=== PATIENT | male | born 1975 | race Caucasian/White ===

== ENCOUNTER 2019-09-14 06:07 | Emergency (ER) | payer OTHER, SELFPAY ==
[2019-09-14 06:27] VITALS: BP 122/77; PULSE 102; RESP 20; TEMP 36.6; O2SAT 100
--- NOTE | 2019-09-14 06:31 | ED.BACK ---
HPI - Back Pain/Injury General Chief Complaint: Back Pain/Injury Stated Complaint: back pain Time Seen by Provider: 09/14/19 06:37 Source: patient Mode of arrival: ambulatory Limitations: no limitations History of Present Illness HPI Narrative: 44-year-old man comes in today complaining of low back pain that radiates to his testicles that has been present for the last 2-3 days. Patient states that he went to get up in a chair and had sudden back pain. He has had low back pain that radiates to his testicle many times and has been having low back pain issues for last 12 years. He was evaluated by a coverage specialist 2 years ago and has had her spinal injections for his symptoms since. he denies any weakness or numbness. MD elicited complaint: back pain Pertinent past history: prior back pain Onset (ago): day(s) (2) Timing: constant Severity: severe Similar Symptoms Previously: Yes Quality: sharp Location: lumbar spine Radiation: other ( Testicles) Exacerbating factors: movement Relieving factors: none Treatments prior to arrival: NSAIDS ( yesterday) and other medications ( Flexeril) Work related injury: No Related Data Home Medications Medication Instructions Recorded Confirmed carbamazepine 500 mg PO Q12H 08/16/19 09/14/19 citalopram [Celexa] 40 mg PO DAILY 08/16/19 09/14/19 cyclobenzaprine 5 mg PO TID PRN 09/14/19 09/14/19 omega 0-cpy-tsg-fish oil [Fish Oil] 1 cap PO DAILY 09/14/19 09/14/19 omeprazole 20 mg PO BID 09/14/19 09/14/19 Allergies Allergy/AdvReac Type Severity Reaction Status Date / Time No Known Allergies Allergy Verified 08/16/19 17:49 Review of Systems Constitutional: Constitutional: Denies chills, Denies fever(s) and Denies weakness Eyes: Eyes: Denies change in vision and Denies photophobia ENT: Denies dysphagia, Denies nasal congestion and Denies sore throat Cardiovascular: Cardiovascular: Denies chest pain and Denies radiating jaw, neck or arm pain Respiratory: Respiratory: Denies cough, Denies dyspnea and Denies wheezing Gastrointestinal: Gastrointestinal: Denies abdominal pain, Denies nausea and Denies vomiting Genitourinary: Genitourinary: Denies hematuria and Denies dysuria Musculoskeletal: Musculoskeletal: Reports back pain, Denies arthralgias, Denies joint swelling and Reports muscle cramps Integumentary/Breasts: Skin/Breast: Denies pruritus, Denies erythema and Denies rash Neurologic: Denies vertigo, Denies syncope and Denies focal weakness Psychiatric: Psychiatric: Denies anxiety and Denies depression Endocrine: Endocrine: Denies polydipsia and Denies polyuria Hematologic/Lymphatic: Hematologic/Lymphatic: Denies easy bleeding and Denies easy bruising Allergic/Immunologic: Allergic/Immunologic: Denies lip swelling and Denies wheezing [facility] Past Medical History Medical History (Updated 09/14/19 @ 06:51 by Priyank Smith MD) Bipolar 1 disorder Hypertension Family History Family History (Updated 08/16/19 @ 18:23 by Priyank Meza MD) Mother Degenerative arthritis Social History Social History (Updated 08/16/19 @ 18:24 by Priyank Meza MD) Years smoked: 20 Smoking status: Current some day smoker Exam Const: General: healthy appearing and alert Orientation/consciousness: patient oriented x3 Limitations: no limitations Other: moderate to severe distress HENMT: Mouth: Yes moist mucous membranes and Yes Abnormal oral and palatal mucosa present Eyes: Conjunctivae: conjunctivae normal Pupils: Equal, round and reactive pupils present EOM: EOMs intact bilaterally Chest: Chest palpation & inspection: no tenderness and No Pacemaker present Resp: Effort & Inspection: normal respiratory effort and not labored Auscultation: clear to auscultation bilaterally, no rales, no rhonchi and no wheezes Cardio: Rate: regular rate Rhythm: regular rhythm Heart sounds: no murmurs Skin: General skin exam: normal color, no jaundice and no pallor Rashes: n
[2019-09-14] MEDS: KETOROLAC (*BKC) 60 MG/2 ML VIAL IM (06:50)
[2019-09-14 06:59] LABS: Add Urine Microscopic? YES; Appearance Urine Sl Cloudy (Clear); Bilirubin Urine 2+ (Negative); Blood Urine Negative (Negative); Color Urine Yellow (Yellow); Glucose Urine UA Negative (Negative); Ketones Urine Negative (Negative); Leukocyte Esterase Ur Negative (Negative); Nitrate Urine Negative (Negative); Protein Urine 1+ (Negative); Specific Grav Ur >= 1.030 (1.010-1.020); Urobilinogen Urine 0.2 mg/dL (0.2-1.0); pH Urine 5.5 (5.0-8.0)
[2019-09-14 07:04] LABS: RBC Urine 0-2 /hpf (0-2); WBC Urine 0-3 /hpf (0-3)
[2019-09-14 07:05] LABS: Bacteria Urine Trace /hpf
[2019-09-14 07:06] LABS: Mucus Urine Few /lpf
[2019-09-14 07:12] VITALS: BP 128/76; PULSE 89; RESP 20; O2SAT 98
== END 2019-09-14 07:18 | disposition home or self-care (01) ==
PROVIDERS: Emergency Provider Emergency Medicine
DX: M54.5 Low back pain (principal)
CPT/HCPCS: 81001; 96372; 99283; J1885

== ENCOUNTER 2020-11-01 12:26 | Emergency (ER) | payer OTHER, SELFPAY ==
--- NOTE | ~2020-11-01 | XR_ITS ---
EXAMINATION: XR lumbar spine 2-3V DATE: 11/01/2020 13:38 INDICATION: Low back pain with sciatica radiating down the left leg. TECHNIQUE: Anteroposterior and lateral views of the lumbar spine, and cone-down lateral view of the l umbosacral junction were obtained. COMPARISON: None. FINDINGS: Alignment is normal. Vertebral body heights are normal. No fracture. Mild disc height loss at L3-L4 a nd L4-L5. Sacrum and bilateral sacroiliac joints are normal. IMPRESSION: 1. Mild lower lumbar spondylosis. Reviewed, dictated and finalized at location A.
--- NOTE | ~2020-11-01 | XR_ITS ---
EXAMINATION: XR chest 2V DATE: 11/01/2020 13:38 INDICATION: Cough and congestion TECHNIQUE: PA and lateral views of the chest were obtained. COMPARISON: None FINDINGS: The lungs are clear with no focal airspace opacities, pulmonary edema, pleural effusion or pneumothor ax. The cardiomediastinal silhouette is normal. Minimal thoracic spondylosis. IMPRESSION: 1. No acute cardiopulmonary disease. Reviewed, dictated and finalized at location A.
[2020-11-01 13:03] VITALS: BP 124/86; PULSE 60; RESP 20; TEMP 36.7; O2SAT 100
--- NOTE | 2020-11-01 13:22 | ED.URI ---
HPI - URI/Sore Throat General Chief Complaint: Upper Respiratory Infection Stated Complaint: SICK Source: patient and family Mode of arrival: ambulatory History of Present Illness HPI Narrative: Patient here with some is a 45-year-old with cough with some green sputum expectorant with mild shortness of breath, with no chest pain no nasal congestion or discharge no sick contacts with no fever chills no nausea vomiting no chest pain or pressure. Patient also has a chronic low back pain and injured his back couple of days ago and is radiating down his left lower extremity pain leveled out of 1010 has tried iyvs-[id number] medication with minimal relief. MD elicited complaint: cough Onset (ago): day(s) Consistency: intermittent Severity: mild Exacerbating factors: nothing Related Data Home Medications Medication Instructions Recorded Confirmed carbamazepine 250 mg PO Q12H 08/16/19 11/01/20 omega 5-fro-mmv-fish oil [Fish Oil] 1 cap PO DAILY 09/14/19 11/01/20 omeprazole 20 mg PO BID 09/14/19 11/01/20 buspirone 5 mg PO DAILY 11/01/20 11/01/20 Allergies Allergy/AdvReac Type Severity Reaction Status Date / Time No Known Allergies Allergy Verified 11/01/20 13:45 Review of Systems Review of Systems: All systems reviewed & are unremarkable except as noted in HPI and below PMFSH Past Medical History Medical History Bipolar 1 disorder Hypertension Family History Family History Mother Degenerative arthritis Social History Social History Years smoked: 20 Smoking status: Current some day smoker Gender identity (if verbalized by the patient): Male Exam Const: General: no acute distress and alert Orientation/consciousness: patient oriented x3 HENMT: Head: normal to inspection Eyes: Conjunctivae: conjunctivae normal Pupils: Equal, round and reactive pupils present Chest: Chest palpation & inspection: normal inspection of the chest Resp: Effort & Inspection: normal respiratory effort Cardio: Rate: regular rate Rhythm: regular rhythm GI: GI Palp: Yes Soft to palpation Percussion: Yes normal to percussion Skin: General skin exam: normal color Rashes: no rashes Neuro: General: patient oriented x3 Extrem: Other: Positive straight leg raise test on the left with tenderness in his L4-L5 left paraspinal area. Psych: Appearance: grossly normal and well kempt Mental Status: mental status grossly normal Affect: normal affect Course Course Emergency Course: Patient had x-rays and x-ray of his lumbar spine and x-ray of his chest reviewed was given Toradol and muscle relaxer IM and which has improved his discomfort. Vital Signs Vital signs: Vital Signs Temperature 36.7 C 11/01/20 13:03 Pulse Rate 60 11/01/20 13:03 Respiratory Rate 20 11/01/20 13:03 Blood Pressure 124/86 11/01/20 13:03 Pulse Oximetry 100 11/01/20 13:03 Temperature 36.7 C 11/01/20 13:03 Pulse Rate 60 11/01/20 13:03 Respiratory Rate 20 11/01/20 13:03 Blood Pressure 124/86 11/01/20 13:03 Pulse Oximetry 100 11/01/20 13:03 Critical Care Time Critical Care Time Critical Care Time: No Discharge Plan Discharge Clinical Impression: Bronchitis Back strain Qualifiers: Encounter type: initial encounter Qualified Code(s): S39.012A - Strain of muscle, fascia and tendon of lower back, initial encounter Patient Disposition: Home, Self-Care Condition: Stable Instructions: Antibiotic Form, Acute Bronchitis (ED), Low Back Strain (ED) Additional Instructions: take medicine as prescribed and follow-up primary care physician within 1 to 2 weeks further evaluation and treatment. Prescriptions: New azithromycin [Zithromax Z-Artem] 250 mg tablet See Rx Instructions .ROUTE .COMPLEX Qty: 6 RF: 0 tramadol [Ultram] 50 mg tab
[2020-11-01] MEDS: ORPHENADRINE CITRATE 100 MG TABLET.ER PO (13:41)
[2020-11-01] MEDS: KETOROLAC (*BKC) 60 MG/2 ML VIAL IM (13:41)
[2020-11-01 14:25] VITALS: BP 142/97; PULSE 66; RESP 20; TEMP 36.8; O2SAT 98
== END 2020-11-01 14:27 | disposition home or self-care (01) ==
PROVIDERS: Emergency Provider Emergency Medicine; PCP Family Medicine
DX: J40 Bronchitis, not specified as acute or chronic (principal); S39.012A Strain of muscle, fascia and tendon of lower back, initial encounter
CPT/HCPCS: 71046; 72100; 96372; 99283; A9270; J1885

== ENCOUNTER 2021-11-12 18:02 | Emergency (ER) | payer OTHER, SELFPAY ==
--- NOTE | ~2021-11-12 | XR_ITS ---
EXAMINATION: XR chest 2V Exam Date/Time: 11/12/2021 18:35 CDT CLINICAL HISTORY: productive cough with SOB x1wk Comparison: 11/01/2020. RESULT: Lines, tubes, and devices: None. Lungs and pleura: Clear. Cardiomediastinal silhouette: Stable cardiomediastinal silhouette. Other: No acute osseous or upper abdominal finding. IMPRESSION: No acute cardiopulmonary process Reviewed, dictated and finalized at location K.
--- NOTE | 2021-11-12 18:16 | ED.URI ---
HPI - URI/Sore Throat General Chief Complaint: Upper Respiratory Infection Stated Complaint: fever, headache, congestion, body pain Time Seen by Provider: 11/12/21 18:16 Source: patient History of Present Illness HPI Narrative: 46-year-old male with a history of smoking, hypertension, bipolar disorder had COVID pneumonia in August of 2021. He presents to the ER with a 10 day history of -- cough with mucopurulent sputum -- nasal congestion mucopurulent discharge with specks of blood. significant postnasal drip -- hilar fullness involving both maxillary sinuses and frontal sinuses no fever or chills. No shortness of breath. MD elicited complaint: cough, nasal congestion and sinus pain Description of mucous: yellow and bloody Able to tolerate fluids by mouth: Yes Exacerbating factors: nothing Relieving factors: nothing Associated symptoms: denies other symptoms, nasal congestion and cough Related Data Home Medications Medication Instructions Recorded Confirmed carbamazepine 250 mg PO Q12H 08/16/19 11/12/21 omeprazole 20 mg PO BID 09/14/19 11/12/21 trazodone 100 mg PO HS 11/12/21 11/12/21 Allergies Allergy/AdvReac Type Severity Reaction Status Date / Time No Known Allergies Allergy Verified 11/12/21 18:24 Review of Systems Review of Systems: All systems reviewed & are unremarkable except as noted in HPI and below Constitutional: Constitutional: Reports as per HPI and Reports no additional constitutional complaints Eyes: Eyes: Reports as per HPI and Reports no additional eye complaints ENT: Reports system reviewed and no additional complaints, except as documented and Reports nasal congestion Comments: mucopurulent nasal discharge with postnasal drip Cardiovascular: Cardiovascular: Reports as per HPI and Reports no additional cardiovascular complaints Respiratory: Respiratory: Reports as per HPI, Reports no additional respiratory complaints and Reports cough Gastrointestinal: Gastrointestinal: Reports as per HPI and Reports no additional gastrointestinal complaints Genitourinary: Genitourinary: Reports no additional male genitourinary complaints and Reports as per HPI Musculoskeletal: Musculoskeletal: Reports no additional musculoskeletal complaints and Reports as per HPI Integumentary/Breasts: Skin/Breast: Reports system reviewed and no additional complaints, except as docu and Reports as per HPI Neurologic: Reports system reviewed and no additional complaints, except as documented and Reports as per HPI Psychiatric: Psychiatric: Reports no additional psychiatric complaints and Reports as per HPI Endocrine: Endocrine: Reports no additional endocrine complaints and Reports as per HPI Hematologic/Lymphatic: Hematologic/Lymphatic: Reports no additional hematologic/lymphatic complaints and Reports as per HPI Allergic/Immunologic: Allergic/Immunologic: Reports no additional allergic/immunologic complaints and Reports as per HPI [facility] Past Medical History Medical History (Updated 11/12/21 @ 19:31 by Cesario Bahena MD) Bipolar 1 disorder Hypertension Infection due to severe acute respiratory syndrome coronavirus 2 (SARS-CoV-2) Family History Family History Mother Degenerative arthritis Social History Social History Years smoked: 20 Smoking status: Current some day smoker Gender identity (if verbalized by the patient): Male Exam Const: General: no acute distress and alert Orientation/consciousness: patient oriented x3 HENMT: Head: normal to inspection General nose exam: Normal external nose present and Normal nares present Other: bilateral maxillary sinus tenderness. Tender upper cervical lymph nodes. Eyes: Conjunctivae: conjunctivae normal Pupils: Equal, round and reactive pupils present Neck: Neck: normal visual inspection, no lymphadenopathy and no meningeal signs C
[2021-11-12 18:19] VITALS: BP 138/93; PULSE 77; RESP 20; TEMP 36.7; O2SAT 97
[2021-11-12 19:16] LABS: SARS-CoV-2 RNA PCR Negative (Negative)
[2021-11-12 19:18] LABS: Influenza A QL RT-PCR Negative (Negative); Influenza B QL RT-PCR Negative (Negative)
[2021-11-12] MEDS: AZITHROMYCIN 250 MG TABLET 500 MG PO (19:38)
[2021-11-12] MEDS: LORATADINE 10 MG TABLET PO (19:38)
[2021-11-12 19:44] VITALS: BP 130/88; PULSE 88; RESP 18; TEMP 36.7; O2SAT 98
== END 2021-11-12 19:45 | disposition home or self-care (01) ==
PROVIDERS: Emergency Provider Internal Medicine Critical Care Medicine; PCP Family Medicine
DX: J01.40 Acute pansinusitis, unspecified (principal); J06.9 Acute upper respiratory infection, unspecified; Z20.822 Contact with and (suspected) exposure to COVID-19
CPT/HCPCS: 71046; 87502; 99283; A9270; C9803; U0003; U0005

== ENCOUNTER 2022-02-28 16:08 | Emergency (ER) | payer OTHER, SELFPAY ==
[2022-02-28 16:29] VITALS: BP 130/81; PULSE 63; RESP 16; TEMP 36.4; O2SAT 100
[2022-02-28 17:18] LABS: Influenza A QL RT-PCR Negative (Negative); Influenza B QL RT-PCR Negative (Negative); SARS-CoV-2 RNA PCR Positive (Negative)
--- NOTE | 2022-02-28 17:23 | ED.FEVER ---
HPI - Fever General Chief Complaint: Fever Stated Complaint: not feeling good exposed to covid Time Seen by Provider: 02/28/22 16:12 History of Present Illness HPI Narrative: mild bodyaches and chills. Onset (ago): day(s) (2) Context: sick contacts Exacerbating factors: nothing Relieving factors: cold medicine Associated symptoms: chills, myalgias and headache Treatments prior to arrival fever: none Related Data Home Medications Medication Instructions Recorded Confirmed No Home Medications 02/28/22 02/28/22 Allergies Allergy/AdvReac Type Severity Reaction Status Date / Time No Known Allergies Allergy Verified 02/28/22 16:35 Review of Systems Review of Systems: All systems reviewed & are unremarkable except as noted in HPI and below Constitutional: Constitutional: Reports no additional constitutional complaints and Reports chills Eyes: Eyes: Reports no additional eye complaints ENT: Reports system reviewed and no additional complaints, except as documented Cardiovascular: Cardiovascular: Reports no additional cardiovascular complaints Respiratory: Respiratory: Reports no additional respiratory complaints Gastrointestinal: Gastrointestinal: Reports no additional gastrointestinal complaints Musculoskeletal: Musculoskeletal: Reports no additional musculoskeletal complaints and Reports myalgias Integumentary/Breasts: Skin/Breast: Reports system reviewed and no additional complaints, except as docu Neurologic: Reports system reviewed and no additional complaints, except as documented Psychiatric: Psychiatric: Reports no additional psychiatric complaints Endocrine: Endocrine: Reports no additional endocrine complaints Hematologic/Lymphatic: Hematologic/Lymphatic: Reports no additional hematologic/lymphatic complaints Allergic/Immunologic: Allergic/Immunologic: Reports no additional allergic/immunologic complaints PMFSH Past Medical History Medical History Bipolar 1 disorder Hypertension Infection due to severe acute respiratory syndrome coronavirus 2 (SARS-CoV-2) Family History Family History Mother Degenerative arthritis Social History Social History Years smoked: 20 Smoking status: Current some day smoker Gender identity (if verbalized by the patient): Male Exam Const: General: healthy appearing and no acute distress Nutritional Appearance: well nourished Orientation/consciousness: patient oriented x3 Limitations: no limitations HENMT: Head: normal to inspection Ears: external ears normal, TM's normal bilaterally and EAC's normal General nose exam: Normal external nose present and Normal nares present Face and sinus: normal facial exam and sinuses nontender Mouth: Yes Normal oral and palatal mucosa present and Yes moist mucous membranes Teeth and gingiva: dentition normal Throat: posterior oropharynx normal Eyes: Conjunctivae: conjunctivae normal Pupils: Equal, round and reactive pupils present EOM: EOMs intact bilaterally Neck: Neck: normal visual inspection, no lymphadenopathy and no meningeal signs Chest: Chest palpation & inspection: normal inspection of the chest Resp: Effort & Inspection: normal respiratory effort Auscultation: clear to auscultation bilaterally Cardio: Rate: regular rate Rhythm: regular rhythm GI: GI Palp: Yes Soft to palpation and No Tenderness to palpation present (GI) Auscultation: normal bowel sounds : General: Yes bladder normal to palpation and Yes no CVA tenderness Back/Spine/Pelvis: Back: no CVA tenderness Skin: General skin exam: normal color Rashes: no rashes Wounds: no wounds Neuro: General: patient oriented x3, moves all extremities, no meningeal signs, no focal motor deficits and CN's II-XI intact bilaterally Cranial nerves: Yes Equal, round and reactive
[2022-02-28 17:31] VITALS: BP 126/80; PULSE 72; RESP 16; TEMP 36.6; O2SAT 98
== END 2022-02-28 17:35 | disposition home or self-care (01) ==
PROVIDERS: Emergency Provider Emergency Medicine; PCP Family Medicine
DX: U07.1 COVID-19 (principal)
CPT/HCPCS: 87502; 99283; C9803; U0003; U0005

== ENCOUNTER 2022-03-21 09:43 | Emergency (ER) | payer OTHER, SELFPAY ==
[2022-03-21 09:45] VITALS: BP 139/87; PULSE 58; RESP 18; TEMP 36; O2SAT 98
--- NOTE | 2022-03-21 09:58 | ED.EYEPROB ---
HPI - Eye Problem General Chief complaint: Eye Problems Stated complaint: Right eye pain Time Seen by Provider: 03/21/22 09:58 Source: patient Mode of arrival: ambulatory History of Present Illness HPI Narrative: 46-year-old male with a history of hypertension, bipolar presents to the ER with a 1 day history of -- foreign body sensation in the right eye. He was trimming trees yesterday when he felt something fall into his right eye. -- Eye pain with tearing from right MD chief complaint: eye pain, eye redness and vision change Onset (ago): day(s) ( since yesterday) Onset description: gradual Duration: constant Location: right eye Eye Symptoms: burning, redness, pain and foreign body sensation Place: home Mechanism: other ( started after he was trimming trees) Severity scale (1-10): 9 If Pain, Quality: aching Associated symptoms: none Treatments Prior to Arrival: none Related Data Home Medications Medication Instructions Recorded Confirmed carbamazepine 200 mg tablet 200 mg PO DAILY 03/21/22 03/21/22 Allergies Allergy/AdvReac Type Severity Reaction Status Date / Time No Known Allergies Allergy Verified 02/28/22 16:35 Review of Systems Review of Systems: All systems reviewed & are unremarkable except as noted in HPI and below Constitutional: Constitutional: Reports as per HPI and Reports no additional constitutional complaints Eyes: Eyes: Reports no additional eye complaints and Reports photophobia ENT: Reports system reviewed and no additional complaints, except as documented and Reports as per HPI Cardiovascular: Cardiovascular: Reports as per HPI and Reports no additional cardiovascular complaints Respiratory: Respiratory: Reports as per HPI and Reports no additional respiratory complaints Gastrointestinal: Gastrointestinal: Reports as per HPI and Reports no additional gastrointestinal complaints Genitourinary: Genitourinary: Reports no additional male genitourinary complaints and Reports as per HPI Musculoskeletal: Musculoskeletal: Reports no additional musculoskeletal complaints and Reports as per HPI Integumentary/Breasts: Skin/Breast: Reports system reviewed and no additional complaints, except as docu and Reports as per HPI Neurologic: Reports system reviewed and no additional complaints, except as documented and Reports as per HPI Psychiatric: Psychiatric: Reports no additional psychiatric complaints and Reports as per HPI Endocrine: Endocrine: Reports no additional endocrine complaints and Reports as per HPI Hematologic/Lymphatic: Hematologic/Lymphatic: Reports no additional hematologic/lymphatic complaints and Reports as per HPI Allergic/Immunologic: Allergic/Immunologic: Reports no additional allergic/immunologic complaints and Reports as per [facility] Past Medical History Medical History Bipolar 1 disorder Hypertension Infection due to severe acute respiratory syndrome coronavirus 2 (SARS-CoV-2) Family History Family History Mother Degenerative arthritis Social History Social History Years smoked: 20 Smoking status: Current some day smoker Gender identity (if verbalized by the patient): Male Exam Const: General: healthy appearing and no acute distress Nutritional Appearance: well nourished Orientation/consciousness: patient oriented x3 Limitations: no limitations HENMT: Head: normal to inspection Ears: external ears normal General nose exam: Normal external nose present Face and sinus: normal facial exam Mouth: Yes Normal oral and palatal mucosa present Throat: posterior oropharynx normal Eyes: Conjunctivae: conjunctivae normal ( right bulbar conjunctiva is erythematous) Pupils: Equal, round and reactive pupils present EOM: EOMs intact bilaterally Direct Ophthalmoscopy: photophobia Other: corneal
[2022-03-21] MEDS: FLUORESCEIN SOD 1 MG/STRIP RIGHT EYE (10:06)
[2022-03-21] MEDS: DACRIOSE EYE IRRIGATION 118 ML BOTTLE 10 ML RIGHT EYE (10:07)
[2022-03-21] MEDS: TETRACAINE HCL 0.5% OPHTH SOLN 4 ML BTL 1 DROP RIGHT EYE (10:07)
[2022-03-21 10:22] VITALS: BP 135/87; PULSE 64; RESP 20; TEMP 36; O2SAT 97
[2022-03-21] MEDS: ERYTHROMYCIN OPHTH OINTMENT 3.5 GM TUBE 1 APPLIC (10:26)
== END 2022-03-21 10:27 | disposition home or self-care (01) ==
PROVIDERS: Emergency Provider Internal Medicine Critical Care Medicine
DX: S05.01XA Injury of conjunctiva and corneal abrasion without foreign body, right eye, initial encounter (principal)
CPT/HCPCS: 99283; A9270

== ENCOUNTER 2022-09-30 14:11 | Emergency (ER) | payer OTHER, SELFPAY ==
--- NOTE | 2022-09-30 14:17 | ED.URI ---
HPI - URI/Sore Throat General Stated Complaint: sinus pressure and sore throat Time Seen by Provider: 09/30/22 14:14 Source: patient and RN notes reviewed Mode of arrival: ambulatory Limitations: no limitations History of Present Illness MD elicited complaint: fever, sore throat, rhinorrhea and nasal congestion Pertinent past history: sinusitis Onset (ago): week(s) (1) Consistency: intermittent Severity: moderate Description of mucous: yellow Able to tolerate fluids by mouth: Yes Exacerbating factors: nothing Context: sick contacts ( Family member) Associated symptoms: fever, chills, headache, rhinorrhea and nasal congestion Treatments prior to arrival: cold medicine (clairinex) Related Data Home Medications Medication Instructions Recorded Confirmed carbamazepine 200 mg tablet 200 mg PO DAILY 03/21/22 03/21/22 Allergies Allergy/AdvReac Type Severity Reaction Status Date / Time No Known Allergies Allergy Verified 09/30/22 14:24 Review of Systems Review of Systems: All systems reviewed & are unremarkable except as noted in HPI and below PMFSH Past Medical History Medical History (Updated 09/30/22 @ 14:35 by Michael Hernandez MD) Bipolar 1 disorder Hypertension Infection due to severe acute respiratory syndrome coronavirus 2 (SARS-CoV-2) Surgical History Surgical History (Updated 09/30/22 @ 14:35 by Michael Hernandez MD) No pertinent past surgical history Family History Family History Mother Degenerative arthritis Social History Social History Years smoked: 20 Smoking status: Current some day smoker Gender identity (if verbalized by the patient): Male Exam Const: General: healthy appearing and no acute distress Nutritional Appearance: well nourished Orientation/consciousness: patient oriented x3 Limitations: no limitations HENMT: Head: normal to inspection Ears: external ears normal Face/Nose/Sinus: Normal external nose present Face and sinus: normal facial exam Mouth: Yes moist mucous membranes Throat: posterior oropharynx normal and uvula midline Eyes: Conjunctivae: conjunctivae normal Pupils: Equal, round and reactive pupils present EOM: EOMs intact bilaterally Neck: Neck: normal visual inspection and no lymphadenopathy Resp: Effort & Inspection: normal respiratory effort Auscultation: clear to auscultation bilaterally, no rales and no rhonchi Cardio: Rate: regular rate Rhythm: regular rhythm GI: GI Palp: Yes Soft to palpation and No Tenderness to palpation present (GI) Auscultation: normal bowel sounds Back/Spine/Pelvis: Cervical Spine: cervical ROM normal Thoracic/Lumbar Spine: thoraco-lumbar ROM normal Skin: General skin exam: normal color Rashes: no rashes Neuro: General: patient oriented x3, moves all extremities, no focal motor deficits and CN's II-XI intact bilaterally Speech: normal speech Gait exam (Neuro): Normal gait present Extrem: General: normal to inspection and no clubbing, cyanosis or edema Psych: Mental Status: mental status grossly normal Affect: normal affect Attitude: cooperative MDM - URI/Sore Throat Differential Diagnosis Differential diagnosis: Likely upper respiratory infection, sinusitis, viral infection, bronchitis and pharyngitis Discharge Plan Discharge Clinical Impression: Sinusitis Qualifiers: Sinusitis location: unspecified location Chronicity: acute Recurrence: non-recurrent Qualified Code(s): J01.90 - Acute sinusitis, unspecified Patient Disposition: Home, Self-Care Condition: Stable Instructions: Sinusitis (ED) Additional Instructions: can try Afrin 1 puff each nostril twice daily for 3 days. Instead of Afrin can also use Flonase 1 puff each nostril twice daily. Can try [id number] decongestant if Claritin not working. Follow-up with your primary care physician as needed if antibiotic still necessar
[2022-09-30 14:21] VITALS: BP 143/82; PULSE 86; RESP 16; TEMP 37.1; O2SAT 99
[2022-09-30 14:25] VITALS: BP 143/82; PULSE 80; RESP 18; TEMP 37.1; O2SAT 99
[2022-09-30 14:43] VITALS: BP 143/82; PULSE 80; RESP 18; TEMP 37.1; O2SAT 99
== END 2022-09-30 14:45 | disposition home or self-care (01) ==
LOC: CHSED 14:33
PROVIDERS: Emergency Provider Emergency Medicine
DX: J01.90 Acute sinusitis, unspecified (principal); I10 Essential (primary) hypertension; F17.210 Nicotine dependence, cigarettes, uncomplicated
CPT/HCPCS: 99281

== ENCOUNTER 2022-11-21 10:57 | Outpatient (CLI) | payer OTHER, SELFPAY ==
--- NOTE | ~2022-11-21 | XR_ITS ---
Lumbosacral Spine: AP and lateral views Clinical History: Pain Findings: The normal lordotic curve is maintained. The vertebral bodies and posterior elements are i ntact. Minimal degenerative disc changes are noted. The sacroiliac joints are normally outlined. Impression: Minimal degenerative disc narrowing in the lower lumbar spine. Reviewed, dictated and finalized at location . Impression: Minimal degenerative disc narrowing in the lower lumbar spine.
== END 2022-11-21 10:58 | disposition home or self-care (01) ==
LOC: CHSIMG 10:59
PROVIDERS: PCP Family Medicine; Visit Provider Family Medicine
DX: M54.10 Radiculopathy, site unspecified (principal); M48.061 Spinal stenosis, lumbar region without neurogenic claudication
CPT/HCPCS: 72100

== ENCOUNTER 2023-01-23 00:28 | Day surgery (SDC) | payer OTHER, SELFPAY ==
[2023-01-15 10:07] VITALS: BMI 24.4
--- NOTE | 2023-01-22 12:13 | WPDANESEPPF ---
Anes - Initial Pre Proc Eval Procedure: Operation Date: 01/23/23 10:00 Proposed Procedures p Colonoscopy - Sadiq Hilario MD Date/Time: 01/22/23 12:13 Surgeon: Sadiq Hilario MD Pre Op Diagnosis: hemorrhage of anus/rectum,hx of colon polyps Patient Data Age: 47 Gender: M Height: 1.75 m Weight: 75 kg Allergies Allergy/AdvReac Type Severity Reaction Status Date / Time No Known Allergies Allergy Verified 01/23/23 08:52 Home Medications Medication Instructions Recorded Confirmed Type carbamazepine 200 mg tablet 200 mg PO DAILY 03/21/22 01/15/23 History Patient hx anesthesia problems: none Family hx anesthesia problems: none Results Review: All pre-operative results and documents have been reviewed as part of the pre-operative evaluation. [facility] Past Medical History Medical History (Updated 01/22/23 @ 19:46 by Sadiq Hilario MD) Bipolar 1 disorder GERD (gastroesophageal reflux disease) Hypertension Infection due to severe acute respiratory syndrome coronavirus 2 (SARS-CoV-2) Surgical History Surgical History (Updated 09/30/22 @ 14:35 by Michael Hernandez MD) No pertinent past surgical history Family History Family History Mother Degenerative arthritis Social History Social History Smoking packs per day: 0.5 Smoking cigarettes per day: 10.0 Years smoked: 30 Smoking pack-years: 15.00 Smoking status: Current every day smoker Tobacco type: cigarettes Alcohol intake: current Alcohol use details: occasional use - couple of drinks per month Substance use: current Substance use type: marijuana Living arrangements: with friend(s) Additional living arrangements comments: fiance Gender identity (if verbalized by the patient): Male Spiritual care concerns: No Anes - Eval Final PreProcedure Day of Procedure 01/22/23 12:13 Patient weight: normal Heart: regular rate and rhythm Lungs: clear to auscultation and normal air movement Airway: Mallampati scale class II Neurological: alert and oriented Last oral intake: >/= 8 hours ASA classification: III Emergent: no Anesthetic plan: proceed Anesthesia type and monitoring: general GIVS and standard monitoring Results Review: All pre-operative results and documents have been reviewed as part of the pre-operative evaluation. Informed Consent: The patient's anesthetic plan and its attendant risks and benefits were discussed with the patient/family/POA. Questions were solicited and answers provided to the satisfaction of the patient/family/POA.
--- NOTE | 2023-01-22 19:46 | PM.HPGS ---
History of Present Illness History of Present Illness Consent: Risks, benefits, and alternatives have been discussed and questions answered. Patient agrees to proceed with procedure. Chief complaint: hemorrhage of anus/rectum,hx of colon polyps Narrative: Brandon Locke is a 47 year old male who is referred for colon cancer screening. He has a history of polyps removed about 6 years ago. He also has seen some red blood in his stools from time to time recently. Review of Systems Review of Systems: All systems reviewed & are unremarkable except as noted in HPI and below PMFSH Past Medical History Medical History Bipolar 1 disorder GERD (gastroesophageal reflux disease) Hypertension Infection due to severe acute respiratory syndrome coronavirus 2 (SARS-CoV-2) Surgical History Surgical History No pertinent past surgical history Family History Family History Mother Degenerative arthritis Social History Social History Smoking packs per day: 0.5 Smoking cigarettes per day: 10.0 Years smoked: 30 Smoking pack-years: 15.00 Smoking status: Current every day smoker Tobacco type: cigarettes Alcohol intake: current Alcohol use details: occasional use - couple of drinks per month Substance use: current Substance use type: marijuana Living arrangements: with friend(s) Additional living arrangements comments: fiance Gender identity (if verbalized by the patient): Male Spiritual care concerns: No Meds Home Medications and Allergies Home Medications Medication Instructions Recorded Confirmed Type carbamazepine 200 mg tablet 200 mg PO DAILY 03/21/22 01/15/23 History Allergies Allergy/AdvReac Type Severity Reaction Status Date / Time No Known Allergies Allergy Verified 01/23/23 08:52 Exam Const: General: alert Orientation/consciousness: patient oriented x3 Resp: Auscultation: clear to auscultation bilaterally Cardio: Rhythm: regular rhythm GI: GI Palp: Yes Soft to palpation and No Tenderness to palpation present (GI) Neuro: General: patient oriented x3 Assessment and Plan Assessment and plan (1) Colon cancer screening: Code(s): Z12.11 - Encounter for screening for malignant neoplasm of colon Status: Acute Assessment and Plan: Colonoscopy with possible biopsy or polypectomy or cautery or injection of substances.
[2023-01-23 08:53] VITALS: BP 121/72; PULSE 62; RESP 20; TEMP 36.3; O2SAT 100; BMI 22.8
[2023-01-23] MEDS: LACTATED RINGERS 1,000 ML 150 ML IV CONT (09:02)
[2023-01-23] MEDS: SIMETHICONE ORAL SUSPENSION 20 MG/0.3 ML 30 ML BOTTLE 0.6 ML IRRIGATION (09:52)
[2023-01-23 10:01] VITALS: BP 103/56; PULSE 49; RESP 12; O2SAT 98
[2023-01-23 10:11] VITALS: BP 108/55; PULSE 46; RESP 12; O2SAT 99
[2023-01-23 10:21] VITALS: BP 114/58; PULSE 48; RESP 14; O2SAT 99
== END 2023-01-23 10:28 | disposition home or self-care (01) ==
PROVIDERS: PCP Family Medicine; Visit Provider Internal Medicine Gastroenterology
PROC: 0DJD8ZZ Inspection of Lower Intestinal Tract, Via Natural or Artificial Opening Endoscopic (ICD-10-PCS; CPT 45378; principal; 2023-01-23 10:00)
DX: Z12.11 Encounter for screening for malignant neoplasm of colon (principal); K64.8 Other hemorrhoids; Z86.010 Personal history of colon polyps; F31.9 Bipolar disorder, unspecified; F17.210 Nicotine dependence, cigarettes, uncomplicated; F12.90 Cannabis use, unspecified, uncomplicated
CPT/HCPCS: 45378; J2704; J7120

== ENCOUNTER 2023-07-29 12:08 | Emergency (ER) | payer OTHER, SELFPAY ==
--- NOTE | ~2023-07-29 | XR_ITS ---
EXAMINATION: XR chest 1V portable 07/29/2023 12:52 INDICATION: Shortness of breath PROCEDURE: AP portable chest COMPARISON: 11/12/2021 FINDINGS: The lungs are clear. The cardiomediastinal silhouette is within normal limits. There are no pleural effusions. There is no pneumothorax suspected. IMPRESSION: 1: NO ACUTE CARDIOPULMONARY DISEASE. Reviewed, dictated and finalized at location B. CE SUPPORT ASSISTANT
[2023-07-29 12:17] VITALS: BP 124/66; PULSE 64; RESP 20; TEMP 36.8; O2SAT 100
--- NOTE | 2023-07-29 12:19 | ED.ANXIETY ---
HPI - Anxiety General Chief Complaint: Anxiety Stated Complaint: chest tightness Source: patient Mode of arrival: ambulatory Limitations: no limitations History of Present Illness HPI narrative: 48-year-old male with a history of Smoking,bipolar disorder, hypertension is gradually being weaned of his carbamazepine fine. He has been started on Vraylar 2 months ago. He presents to the ER with a 2 to three-week history of -- anxiety for which he takes marijuana. -- Chest tightness. He denies any chest pain. No relation to exercise. -- Shortness of breath. no cough or sputum production -- Fluttering of eyelids he thinks he had panic attack is a short while ago. complaint: anxiety Onset (ago): week(s) Symptoms: dyspnea, chest pain, palpitations and sense of impending doom Severity: severe Quality: constant Place: home History of similar episodes: Yes Provoking factors: emotional stress Relieving factors: nothing Exacerbating factors: nothing Associated symptoms: chest pain, shortness of breath and palpitations Related Data Home Medications Medication Instructions Recorded Confirmed carbamazepine 200 mg tablet 200 mg PO DAILY 03/21/22 07/29/23 cariprazine 1.5 mg capsule 1.5 mg PO DAILY 07/29/23 07/29/23 (Vraylar) Allergies Allergy/AdvReac Type Severity Reaction Status Date / Time No Known Allergies Allergy Verified 07/29/23 12:26 Review of Systems Review of Systems: All systems reviewed & are unremarkable except as noted in HPI and below Constitutional: Constitutional: Reports as per HPI and Reports no additional constitutional complaints Eyes: Eyes: Reports as per HPI and Reports no additional eye complaints Comments: are fluttering of the eyelids without any visual deficits ENT: Reports system reviewed and no additional complaints, except as documented and Reports as per HPI Cardiovascular: Cardiovascular: Reports as per HPI and Reports no additional cardiovascular complaints Comments: chest discomfort Respiratory: Respiratory: Reports as per HPI, Reports no additional respiratory complaints and Reports dyspnea Gastrointestinal: Gastrointestinal: Reports as per HPI and Reports no additional gastrointestinal complaints Genitourinary: Genitourinary: Reports no additional male genitourinary complaints and Reports as per HPI Musculoskeletal: Musculoskeletal: Reports no additional musculoskeletal complaints and Reports as per HPI Integumentary/Breasts: Skin/Breast: Reports system reviewed and no additional complaints, except as docu and Reports as per HPI Neurologic: Reports system reviewed and no additional complaints, except as documented and Reports as per HPI Psychiatric: Psychiatric: Reports no additional psychiatric complaints, Reports as per HPI and Reports anxiety Endocrine: Endocrine: Reports no additional endocrine complaints and Reports as per HPI Hematologic/Lymphatic: Hematologic/Lymphatic: Reports no additional hematologic/lymphatic complaints and Reports as per HPI Allergic/Immunologic: Allergic/Immunologic: Reports no additional allergic/immunologic complaints and Reports as per HPI [facility] Past Medical History Medical History Bipolar 1 disorder GERD (gastroesophageal reflux disease) Hypertension Infection due to severe acute respiratory syndrome coronavirus 2 (SARS-CoV-2) Surgical History Surgical History No pertinent past surgical history Family History Family History Mother Degenerative arthritis Social History Social History Smoking packs per day: 0.5 Smoking cigarettes per day: 10.0 Years smoked: 30 Smoking pack-years: 15.00 Smoking status: Current every day smoker Tobacco type: cigarettes Alcohol intake: current [employer]
--- NOTE | 2023-07-29 12:20 | ECG_ITS ---
Measurements Intervals [place] Rate: 60 P: 61 SC: 170 QRS: 70 QRSD: 97 T: 45 QT: 406 QTc: 409 Interpretive Statements SINUS RHYTHM NO PREVIOUS ECG AVAILABLE FOR COMPARISON Electronically Signed On 07-29-2023 13:14:06 ELECTRICAL SIGN SERVICER by Marko Yeboah M.D.
[2023-07-29 12:34] LABS: Basophils Absolute Auto 0.03 K/mm3 (0.00-0.10); Basophils Percent Auto 0.5 % (0.0-1.0); Eosinophils Absolute Auto 0.09 K/mm3 (0.02-0.50); Eosinophils Percent Auto 1.5 % (1.0-6.0); Hematocrit 45.6 % (40.0-54.0); Hemoglobin 15.5 g/dL (14.0-18.0); Immature Granulocyte Absolute 0.02 K/mm3 (0.00-0.00); Immature Granulocyte Percent A 0.3 % (0.0-0.0); Lymphocytes Absolute Auto 1.84 K/mm3 (1.10-4.50); Mean Corpuscular Hemoglobin 30.6 pg (27.0-31.0); Mean Corpuscular Volume 90.1 fL (78.0-102.0); Mean Platelet Volume 9.6 fl (8.7-11.0); Monocytes Absolute Auto 0.36 K/mm3 (0.10-0.90); Monocytes Percent Auto 6.1 % (2.0-11.0); Neutrophils Absolute Auto 3.6 K/mm3 (1.7-7.2); Neutrophils Percent Auto 60.6 % (50.0-70.0); Platelet Count Result 273 K/mm3 (150-420); Red Blood Count 5.06 M/mm3 (4.70-6.10); Red Cell Distribution Width 12.6 % (11.6-14.4); White Blood Count 5.9 K/mm3 (4.8-10.8)
[2023-07-29 13:02] LABS: Alanine Aminotransferase 41 U/L (16-63); Albumin Level 3.9 g/dL (3.4-5.0); Alkaline Phosphatase 119 U/L (46-116); Anion Gap 10 mmol/L (8-16); Aspartate Amino Transferase 21 U/L (15-37); Bilirubin,Total 0.2 mg/dL (0.00-1.00); Blood Urea Nitrogen 13 mg/dL (7-18); Calcium 9.8 mg/dL (8.5-10.1); Carbon Dioxide 26 mmol/L (21-32); Chloride 102 mmol/L (98-108); Estimated CRCL calculation 68 ml/min; Estimated Glomerular Filt Rate > 60; Glucose 99 mg/dL (70-99); Osmolality Calculated 286 mOsm/kg (285-295); Potassium 3.7 mmol/L (3.5-5.1); Sodium 138 mmol/L (136-145); Total Protein 7.6 g/dL (6.4-8.2)
[2023-07-29 13:03] LABS: NT Pro B Type Natriuretic Pept 27 pg/mL (0-125); Troponin I 6.1 ng/L (0.00-60.4)
[2023-07-29 13:38] VITALS: BP 146/92; PULSE 67; RESP 18; O2SAT 100
== END 2023-07-29 13:57 | disposition home or self-care (01) ==
PROVIDERS: Emergency Provider Internal Medicine Critical Care Medicine; PCP Family Medicine
DX: R07.9 Chest pain, unspecified (principal); F41.0 Panic disorder [episodic paroxysmal anxiety]; I10 Essential (primary) hypertension; Z79.899 Other long term (current) drug therapy; F17.210 Nicotine dependence, cigarettes, uncomplicated
CPT/HCPCS: 36415; 71045; 80053; 83880; 84484; 85025; 93005; 99284

== ENCOUNTER 2023-09-17 14:15 | Outpatient (CLI) | payer OTHER, SELFPAY ==
--- NOTE | ~2023-09-17 | XR_ITS ---
XR chest 2V DATE: 09/17/2023 14:45 INDICATION: Shortness of breath. Cervical radiculopathy. TECHNIQUE: 2 views COMPARISON: 07/29/2023 portable AP chest at 1255 hours FINDINGS: Normal heart size. No hilar or mediastinal enlargement. Mild pulmonary hyperinflation. No p ulmonary infiltrate or consolidation, pleural effusion or pulmonary vascular congestion or pneumothor ax. Included skeletal structures are unremarkable. IMPRESSION: Mild hyperinflation; otherwise no active cardiopulmonary disease Reviewed, dictated and finalized at location L. LA[employer] SPECIALIST
--- NOTE | ~2023-09-17 | XR_ITS ---
EXAMINATION:XR_CERV2-3V_CR DATE: 09/17/2023 14:45 INDICATION: Cervical radiculopathy TECHNIQUE: AP, lateral, lateral swimmers and odontoid views of the cervical spine are provided. COMPARISON: None FINDINGS: Alignment is normal. Odontoid is intact. Normal atlantoaxial interval. Vertebral body heights are no rmal. Disc spaces are normal. Multilevel minimal to mild cervical facet and uncovertebral osteoarthri tis. Prevertebral soft tissues are normal. Visualized apices of the lungs are clear. IMPRESSION: 1. Minimal to mild cervical facet and uncovertebral osteoarthritis. Reviewed, dictated and finalized at location A. [employer]
[2023-09-17 14:33] LABS: Basophils Absolute Auto 0.04 K/mm3 (0.00-0.10); Basophils Percent Auto 0.5 % (0.0-1.0); Eosinophils Absolute Auto 0.04 K/mm3 (0.02-0.50); Eosinophils Percent Auto 0.5 % (1.0-6.0); Hematocrit 42.7 % (40.0-54.0); Hemoglobin 14.7 g/dL (14.0-18.0); Immature Granulocyte Absolute 0.03 K/mm3 (0.00-0.00); Immature Granulocyte Percent A 0.4 % (0.0-0.0); Lymphocytes Absolute Auto 1.93 K/mm3 (1.10-4.50); Lymphocytes Percent Auto 25.3 % (18.0-42.0); Mean Corpuscular HGB Conc 34.4 g/dL (32.0-36.0); Mean Corpuscular Hemoglobin 30.6 pg (27.0-31.0); Mean Corpuscular Volume 88.8 fL (78.0-102.0); Mean Platelet Volume 9.9 fl (8.7-11.0); Monocytes Absolute Auto 0.47 K/mm3 (0.10-0.90); Monocytes Percent Auto 6.2 % (2.0-11.0); Neutrophils Absolute Auto 5.1 K/mm3 (1.7-7.2); Neutrophils Percent Auto 67.1 % (50.0-70.0); Platelet Count Result 261 K/mm3 (150-420); Red Blood Count 4.81 M/mm3 (4.70-6.10); Red Cell Distribution Width 12.6 % (11.6-14.4); White Blood Count 7.6 K/mm3 (4.8-10.8)
[2023-09-17 15:35] LABS: Alanine Aminotransferase 36 U/L (16-63); Albumin Level 4.2 g/dL (3.4-5.0); Alkaline Phosphatase 115 U/L (46-116); Anion Gap 10 mmol/L (8-16); Aspartate Amino Transferase 22 U/L (15-37); Bilirubin,Total 0.5 mg/dL (0.00-1.00); Blood Urea Nitrogen 10 mg/dL (7-18); Calcium 9.5 mg/dL (8.5-10.1); Carbon Dioxide 28 mmol/L (21-32); Chloride 104 mmol/L (98-108); Estimated Glomerular Filt Rate > 60; Folic Acid 16.3 ng/mL (8.6->20); Glucose 105 mg/dL (70-99); Osmolality Calculated 293 mOsm/kg (285-295); Potassium 3.7 mmol/L (3.5-5.1); Sodium 142 mmol/L (136-145); Thyroid Stimulating Hormone 0.64 uIU/mL (0.36-3.74); Total Protein 7.5 g/dL (6.4-8.2); Vitamin B12 758 pg/mL (193-986)
[2023-09-19 17:15] LABS: RPR Screen Non-Reactive (Non-Reactive)
[2023-09-20 02:06] LABS: Methylmalonic Acid 79 nmol/L (87-318)
== END 2023-09-17 14:16 | disposition home or self-care (01) ==
LOC: CHSLAB 14:17
PROVIDERS: PCP Family Medicine; Visit Provider Family Medicine
DX: R00.2 Palpitations (principal); R20.2 Paresthesia of skin; R06.02 Shortness of breath; M54.12 Radiculopathy, cervical region; M85.88 Other specified disorders of bone density and structure, other site; R91.8 Other nonspecific abnormal finding of lung field
CPT/HCPCS: 36415; 71046; 72040; 80053; 82607; 82746; 83921; 84443; 85025; 86592

== ENCOUNTER 2023-11-13 13:58 | Outpatient (CLI) | payer OTHER, SELFPAY ==
[2023-11-13 14:57] LABS: SARS-CoV-2 RNA PCR Negative (Negative)
[2023-11-13 15:04] LABS: Influenza A QL RT-PCR Negative (Negative); Influenza B QL RT-PCR Negative (Negative)
== END 2023-11-13 13:59 | disposition home or self-care (01) ==
PROVIDERS: PCP Family Medicine
DX: J06.9 Acute upper respiratory infection, unspecified (principal); R50.9 Fever, unspecified
CPT/HCPCS: 87636

== ENCOUNTER 2023-11-30 18:00 | Emergency (ER) | payer OTHER, SELFPAY ==
[2023-11-30 18:00] VITALS: BP 133/87; PULSE 66; RESP 16; TEMP 36.9; O2SAT 100
--- NOTE | 2023-11-30 18:15 | ED.MALEGU ---
HPI - Male Genitourinary General Chief complaint: Urogenital-Male Stated complaint: testicular pain and swelling Time Seen by Provider: 11/30/23 18:02 History of Present Illness HPI Narrative: Pt presents with several complaints. Pt has testicular pain above left testicle for a month. Pt also complains of fatigue and loss of appetite and having trouble sleeping. Pt called PCP to get appointment and was told could have infection and should get labs done. Pt said they could not see him until Thursday. Pt is concerned he might have cancer. Pt was on several medications for bipolar disorder but was having side effects so he weaned himself off of all of them. Related Data Allergies Allergy/AdvReac Type Severity Reaction Status Date / Time No Known Allergies Allergy Verified 11/30/23 18:05 Review of Systems Review of Systems: All systems reviewed & are unremarkable except as noted in HPI and below PMFSH Past Medical History Medical History Bipolar 1 disorder GERD (gastroesophageal reflux disease) Hypertension Infection due to severe acute respiratory syndrome coronavirus 2 (SARS-CoV-2) Surgical History Surgical History No pertinent past surgical history Family History Family History Mother Degenerative arthritis Social History Social History Smoking packs per day: 0.5 Smoking cigarettes per day: 10.0 Years smoked: 30 Smoking pack-years: 15.00 Smoking status: Current every day smoker Tobacco type: cigarettes Alcohol intake: current Alcohol use details: occasional use - couple of drinks per month Substance use: current Substance use type: marijuana Living arrangements: with friend(s) Additional living arrangements comments: fiance Gender identity (if verbalized by the patient): Male Spiritual care concerns: No Exam Const: General: healthy appearing Nutritional Appearance: well nourished Resp: Effort & Inspection: normal respiratory effort Auscultation: clear to auscultation bilaterally Cardio: Rate: regular rate Rhythm: regular rhythm GI: GI Palp: Yes Soft to palpation Auscultation: normal bowel sounds : Testes: Testes normal, epididymal tenderness on the left (mild), no testicular swelling and no testicular tenderness Skin: General skin exam: normal color Wounds: no wounds Neuro: General: patient oriented x3, moves all extremities, no meningeal signs and no focal motor deficits Speech: normal speech Extrem: General: normal to inspection and no clubbing, cyanosis or edema Psych: Mental Status: mental status grossly normal Affect: Anxious affect present Attitude: cooperative Course Vital Signs Vital signs: Vital Signs Temperature 98.5 F 11/30/23 18:00 Pulse Rate 66 11/30/23 18:00 Respiratory Rate 16 11/30/23 18:00 Blood Pressure 133/87 11/30/23 18:00 Pulse Oximetry 100 11/30/23 18:00 Oxygen Delivery Room Air 11/30/23 18:00 Temperature 98.2 F 11/30/23 19:31 Pulse Rate 78 11/30/23 19:31 Respiratory Rate 18 11/30/23 19:31 Blood Pressure 116/73 11/30/23 19:31 Pulse Oximetry 99 11/30/23 19:31 Oxygen Delivery Room Air 11/30/23 19:31 MDM - Male Genitourinary MDM Narrative Medical decision making narrative: Pt presents with complaints of testicluar pain on left for a month and fatigue and insomnia and decreased appetite. Will not be able to get testicular sono tonight because tech not here but does not need emergent sono. will check labs and UA to rule out infection. ua and labs unremarkable. will treat as possible epididymitis. will order outpatient testicular sono since no US tech here now. Lab Data 11/30/23 18:26 11/30/23 18:26 Labs: Lab Results 11/30/23 Rang
[2023-11-30 18:31] LABS: Basophils Absolute Auto 0.03 K/mm3 (0.00-0.10); Basophils Percent Auto 0.3 % (0.0-1.0); Eosinophils Absolute Auto 0.08 K/mm3 (0.02-0.50); Eosinophils Percent Auto 0.8 % (1.0-6.0); Hematocrit 40.1 % (40.0-54.0); Hemoglobin 13.5 g/dL (14.0-18.0); Immature Granulocyte Absolute 0.04 K/mm3 (0.00-0.00); Immature Granulocyte Percent A 0.4 % (0.0-0.0); Lymphocytes Absolute Auto 2.57 K/mm3 (1.10-4.50); Lymphocytes Percent Auto 24.2 % (18.0-42.0); Mean Corpuscular HGB Conc 33.7 g/dL (32-36); Mean Corpuscular Hemoglobin 30.4 pg (27.0-31.0); Mean Corpuscular Volume 90.3 fL (78.0-102.0); Mean Platelet Volume 9.8 fl (8.7-11.0); Monocytes Percent Auto 6.6 % (2.0-11.0); Neutrophils Percent Auto 67.7 % (50.0-70.0); Platelet Count Result 232 K/mm3 (150-420); Red Blood Count 4.44 M/mm3 (4.70-6.10); Red Cell Distribution Width 12.8 % (11.6-14.4); White Blood Count 10.6 K/mm3 (4.8-10.8)
[2023-11-30 18:46] LABS: Appearance Urine Clear (Clear); Bilirubin Urine Negative (Negative); Blood Urine Negative (Negative); Color Urine Yellow (Yellow); Glucose Urine UA Negative (Negative); Ketones Urine Negative (Negative); Leukocyte Esterase Ur Negative LEU/UL (Negative); Nitrate Urine Negative (Negative); Protein Urine Trace (Negative); Specific Grav Ur >= 1.030 (1.010-1.020); Urobilinogen Urine 0.2 mg/dL (0.2-1.0); pH Urine 5.5 (5.0-8.0)
[2023-11-30 18:52] LABS: Add Urine Microscopic? YES; Alanine Aminotransferase 12 U/L (16-63); Alkaline Phosphatase 92 U/L (46-116); Anion Gap 11 mmol/L (4-12); Aspartate Amino Transferase 20 U/L (15-37); Bacteria Urine None seen /hpf; Bilirubin,Total 0.4 mg/dL (0.00-1.00); Blood Urea Nitrogen 10 mg/dL (7-18); Calcium 9.3 mg/dL (8.5-10.1); Carbon Dioxide 27 mmol/L (21-32); Chloride 109 mmol/L (98-108); Estimated CRCL calculation 64 ml/min; Estimated Glomerular Filt Rate > 60; Glucose 114 mg/dL (70-99); Mucus Urine Few /lpf; Osmolality Calculated 304 mOsm/kg (285-295); Potassium 3.5 mmol/L (3.5-5.1); RBC Urine 0-2 /hpf (0-2); Sodium 147 mmol/L (136-145); Squamous Epithelial Cell Urine None seen /hpf (Few); Total Protein 7.1 g/dL (6.4-8.2); WBC Urine 0-3 /hpf (0-3)
--- NOTE | 2023-11-30 19:06 | PC.NURSE ---
REPORT GIVEN TO SAMPLE DYE MIXER NURSE BRENT PERERA
[2023-11-30 19:17] VITALS: BP 113/74; PULSE 65; RESP 18; TEMP 36.9; O2SAT 97
[2023-11-30] MEDS: DOXYCYCLINE HYCLATE 100 MG TABLET PO (19:25)
[2023-11-30 19:31] VITALS: BP 116/73; PULSE 78; RESP 18; TEMP 36.8; O2SAT 99
== END 2023-11-30 19:31 | disposition home or self-care (01) ==
PROVIDERS: Emergency Provider Emergency Medicine; PCP Family Medicine
DX: N50.812 Left testicular pain (principal); F31.9 Bipolar disorder, unspecified; K21.9 Gastro-esophageal reflux disease without esophagitis; I10 Essential (primary) hypertension; F17.210 Nicotine dependence, cigarettes, uncomplicated
CPT/HCPCS: 36415; 80053; 81001; 85025; 99283; A9270

== ENCOUNTER 2023-12-02 13:48 | Outpatient (CLI) | payer OTHER, SELFPAY ==
--- NOTE | ~2023-12-02 | US_ITS ---
EXAMINATION: US scrotum doppler DATE: 12/02/2023 14:19 INDICATION: Left testicular pain. TECHNIQUE: Grayscale and Doppler ultrasound images of the testes were obtained. COMPARISON: None. FINDINGS: The right testis measures 4.1 x 2.8 x 2.7 cm. The left testis measures 4.0 x 2.9 x 2.4 cm. There is normal vascular flow to both testes. The right epididymis demonstrates a 4 mm cyst. The left epididymis demonstrates a 6 mm hypoechoic mass. There is normal vascular flow in the epididymides. There is no varicocele or hydrocele. IMPRESSION: 1. 6 mm hypoechoic mass in left epididymis, likely a benign mass such as spermatocele or hematoma. Reviewed, dictated and finalized at location A. IMPRESSION: 1. 6 mm hypoechoic mass in left epididymis, likely a benign mass such as sperm atocele or hematoma.
== END 2023-12-02 13:49 | disposition home or self-care (01) ==
LOC: CHSIMG 13:49
PROVIDERS: PCP Family Medicine; Visit Provider Emergency Medicine
DX: N50.812 Left testicular pain (principal); N50.89 Other specified disorders of the male genital organs
CPT/HCPCS: 76870; 93976

== ENCOUNTER 2023-12-08 17:18 | Outpatient (CLI) | payer OTHER, SELFPAY ==
[2023-12-08 18:05] LABS: Anion Gap 8 mmol/L (4-12); Blood Urea Nitrogen 16 mg/dL (7-18); Calcium 9.7 mg/dL (8.5-10.1); Carbon Dioxide 30 mmol/L (21-32); Chloride 102 mmol/L (98-108); Estimated Glomerular Filt Rate > 60; Glucose 90 mg/dL (70-99); Osmolality Calculated 291 mOsm/kg (285-295); Potassium 4.1 mmol/L (3.5-5.1); Sodium 140 mmol/L (136-145)
== END 2023-12-08 17:19 | disposition home or self-care (01) ==
LOC: CHSLAB 17:19
PROVIDERS: PCP Family Medicine; Visit Provider Family Medicine
DX: E87.0 Hyperosmolality and hypernatremia (principal)
CPT/HCPCS: 36415; 80048

== ENCOUNTER 2024-01-02 11:49 | Outpatient (CLI) | payer OTHER, SELFPAY ==
[2024-01-02 12:59] LABS: Basophils Absolute Auto 0.03 K/mm3 (0.00-0.10); Basophils Percent Auto 0.4 % (0.0-1.0); Eosinophils Absolute Auto 0.06 K/mm3 (0.02-0.50); Eosinophils Percent Auto 0.8 % (1.0-6.0); Hematocrit 45.9 % (40.0-54.0); Hemoglobin 15.3 g/dL (14.0-18.0); Immature Granulocyte Absolute 0.02 K/mm3 (0.00-0.00); Immature Granulocyte Percent A 0.3 % (0.0-0.0); Lymphocytes Absolute Auto 2.12 K/mm3 (1.10-4.50); Lymphocytes Percent Auto 29.9 % (18.0-42.0); Mean Corpuscular HGB Conc 33.3 g/dL (32-36); Mean Corpuscular Hemoglobin 30.2 pg (27.0-31.0); Mean Corpuscular Volume 90.7 fL (78.0-102.0); Mean Platelet Volume 10.4 fl (8.7-11.0); Monocytes Absolute Auto 0.51 K/mm3 (0.10-0.90); Monocytes Percent Auto 7.2 % (2.0-11.0); Neutrophils Absolute Auto 4.34 K/mm3 (1.70-7.20); Neutrophils Percent Auto 61.4 % (50.0-70.0); Platelet Count Result 271 K/mm3 (150-420); Red Blood Count 5.06 M/mm3 (4.70-6.10); White Blood Count 7.1 K/mm3 (4.8-10.8)
[2024-01-02 13:22] LABS: Alanine Aminotransferase 32 U/L (16-63); Albumin Level 3.9 g/dL (3.4-5.0); Alkaline Phosphatase 99 U/L (46-116); Anion Gap 13 mmol/L (4-12); Appearance Urine Clear (Clear); Aspartate Amino Transferase 17 U/L (15-37); Bilirubin Urine Negative (Negative); Bilirubin,Total 0.4 mg/dL (0.00-1.00); Blood Urea Nitrogen 12 mg/dL (7-18); Blood Urine Negative (Negative); Calcium 9.1 mg/dL (8.5-10.1); Carbon Dioxide 25 mmol/L (21-32); Chloride 107 mmol/L (98-108); Cholesterol 187 mg/dL (0-200); Color Urine Light Yellow (Yellow); Estimated Glomerular Filt Rate > 60; Glucose 86 mg/dL (70-99); Glucose Urine UA Negative (Negative); HDL Direct 72 mg/dL (40-60); Ketones Urine Negative (Negative); LDL Cholesterol Calculated 97 mg/dL (<130); Leukocyte Esterase Ur Negative LEU/UL (Negative); Nitrate Urine Negative (Negative); Osmolality Calculated 298 mOsm/kg (285-295); Potassium 4.2 mmol/L (3.5-5.1); Prostate Specific Antigen 0.4 ng/mL (< OR = 4.0); Protein Urine Negative (Negative); Sodium 145 mmol/L (136-145); Specific Grav Ur 1.025 (1.010-1.020); Thyroid Stimulating Hormone 1.65 uIU/mL (0.36-3.74); Total Protein 7.4 g/dL (6.4-8.2); Triglycerides 91 mg/dL (0-150); Urobilinogen Urine 0.2 mg/dL (0.2-1.0); pH Urine 5.5 (5.0-8.0)
[2024-01-02 13:24] LABS: Add Urine Microscopic? NO
== END 2024-01-02 11:50 | disposition home or self-care (01) ==
LOC: CHSLAB 11:50
PROVIDERS: PCP Family Medicine; Visit Provider Family Medicine
DX: R53.83 Other fatigue (principal); Z13.220 Encounter for screening for lipoid disorders; Z12.5 Encounter for screening for malignant neoplasm of prostate; N52.9 Male erectile dysfunction, unspecified
CPT/HCPCS: 36415; 80053; 80061; 81003; 82040; 84153; 84270; 84403; 84443; 85025; G0103

== ENCOUNTER 2024-01-16 13:09 | Outpatient (CLI) | payer OTHER, SELFPAY ==
[2024-01-21 14:38] LABS: Testosterone Free 73.4 pg/mL (35.0-155.0); Testosterone Total 592 ng/dL (250-1100)
== END 2024-01-16 13:10 | disposition home or self-care (01) ==
LOC: CHSLAB 13:10
PROVIDERS: PCP Family Medicine; Visit Provider Family Medicine
DX: N52.9 Male erectile dysfunction, unspecified (principal)
CPT/HCPCS: 36415; 84402; 84403

== ENCOUNTER 2024-01-23 10:13 | Outpatient (CLI) | payer OTHER, SELFPAY ==
[2024-01-28 16:29] LABS: Testosterone Free 50.6 pg/mL (35.0-155.0); Testosterone Total 414 ng/dL (250-1100)
== END 2024-01-23 10:14 | disposition home or self-care (01) ==
PROVIDERS: PCP Family Medicine; Visit Provider Family Medicine
DX: N52.9 Male erectile dysfunction, unspecified (principal)
CPT/HCPCS: 36415; 84402; 84403

== ENCOUNTER 2024-01-30 08:17 | Outpatient (CLI) | payer OTHER, SELFPAY ==
[2024-02-02 15:53] LABS: Testosterone Free 92.2 pg/mL (35.0-155.0); Testosterone Total 606 ng/dL (250-1100)
== END 2024-01-30 08:18 | disposition home or self-care (01) ==
LOC: CHSLAB 08:18
PROVIDERS: PCP Family Medicine; Visit Provider Family Medicine
DX: N52.9 Male erectile dysfunction, unspecified (principal)
CPT/HCPCS: 36415; 84402; 84403

== ENCOUNTER 2024-03-22 09:40 | Emergency (ER) | payer OTHER, SELFPAY ==
--- NOTE | ~2024-03-22 | XR_ITS ---
3 VIEWS LUMBAR SPINE Ordering provider: Mp Gay MD History: . LBP/GROIN PAIN AFTER TWISTING LIFTING PIPE . Comparison: November 21, 2022 FINDINGS: VERTEBRAL BODIES: No visible fracture or subluxation. Degenerative changes of the spine. DISK SPACES: Narrowing of the disc L4-L5. SOFT TISSUES: Normal. IMPRESSION: No acute osseous abnormality lumbar spine. Degenerative disc disease at the level of L4-L5. Reviewed, dictated and finalized at location A.
[2024-03-22 09:45] VITALS: BP 142/88; PULSE 65; RESP 18; TEMP 36.8; O2SAT 100
[2024-03-22 09:47] VITALS: BP 142/88; PULSE 65; RESP 18; TEMP 36.8; O2SAT 100
--- NOTE | 2024-03-22 09:57 | ED.BACK ---
HPI - Back Pain/Injury General Chief Complaint: Back Pain/Injury Stated Complaint: back pain Source: patient Mode of arrival: ambulatory History of Present Illness HPI Narrative: patient is a 48-year-old male with a significant past medical history presents today for lumbar pain. Patient states he does have history chronic lumbar pain however he has had pain like this in a long time. He states he was bending over to pick something up and tweaked his back and felt a pain shooting pain from his lumbar spine down his leg to his testicles. He states that most the pain is on the lumbar spine and to the right lumbar spine musculoskeletal area. He states his pain is 10/10. MD elicited complaint: back pain Pertinent past history: prior back pain Onset (ago): day(s) Timing: constant Severity: severe Pain scale (0-10): 10 Similar Symptoms Previously: Yes Quality: stabbing and crushing Location: lumbar spine Radiation: groin Exacerbating factors: movement Relieving factors: none Context: while lifting and turning/twisting Related Data Allergies Allergy/AdvReac Type Severity Reaction Status Date / Time No Known Allergies Allergy Verified 03/22/24 09:45 Review of Systems Review of Systems: All systems reviewed & are unremarkable except as noted in HPI and below Constitutional: Constitutional: Reports as per HPI Eyes: Eyes: Reports no additional eye complaints ENT: Reports system reviewed and no additional complaints, except as documented Cardiovascular: Cardiovascular: Reports no additional cardiovascular complaints Respiratory: Respiratory: Reports no additional respiratory complaints Gastrointestinal: Gastrointestinal: Reports no additional gastrointestinal complaints Genitourinary: Genitourinary: Reports no additional male genitourinary complaints Musculoskeletal: Musculoskeletal: Reports as per HPI and Reports back pain Integumentary/Breasts: Skin/Breast: Reports system reviewed and no additional complaints, except as docu Neurologic: Reports system reviewed and no additional complaints, except as documented Psychiatric: Psychiatric: Reports no additional psychiatric complaints Endocrine: Endocrine: Reports no additional endocrine complaints Hematologic/Lymphatic: Hematologic/Lymphatic: Reports no additional hematologic/lymphatic complaints Allergic/Immunologic: Allergic/Immunologic: Reports no additional allergic/immunologic complaints PMFSH Past Medical History Medical History Bipolar 1 disorder GERD (gastroesophageal reflux disease) Hypertension Infection due to severe acute respiratory syndrome coronavirus 2 (SARS-CoV-2) Surgical History Surgical History No pertinent past surgical history Family History Family History Mother Degenerative arthritis Social History Social History Smoking packs per day: 0.5 Smoking cigarettes per day: 10.0 Years smoked: 30 Smoking pack-years: 15.00 Smoking status: Current every day smoker Tobacco type: cigarettes Alcohol intake: current Alcohol use details: occasional use - couple of drinks per month Substance use: current Substance use type: marijuana Living arrangements: with friend(s) Additional living arrangements comments: fiance Gender identity (if verbalized by the patient): Male Spiritual care concerns: No Exam Const: General: healthy appearing Nutritional Appearance: well nourished Orientation/consciousness: patient oriented x3 HENMT: Head: normal to inspection Ears: external ears normal Face/Nose/Sinus: Normal external nose present Face and sinus: normal facial exam Eyes: Conjunctivae: conjunctivae normal Pupils: Equal, round and reactive pupils present EOM: EOMs intact bilaterally Neck: Neck: normal
[2024-03-22] MEDS: KETOROLAC (*BKC) 60 MG/2 ML VIAL IM (10:08)
[2024-03-22] MEDS: dexAMETHasone SOD PHOS INJ 10 MG/ML 1 ML VIAL IM (10:08)
[2024-03-22] MEDS: CYCLOBENZAPRINE HCL 10 MG TABLET PO (10:08)
--- NOTE | 2024-03-22 10:19 | PC.NURSE ---
When pt was standing for injections, he stated that he felt like his left leg had gone numb. After meds given, pt went to xray.
--- NOTE | 2024-03-22 10:43 | PC.NURSE ---
Pt states that his right testicle is throbbing.
[2024-03-22] MEDS: HYDROcodone/acetaminophen (*CRX) 10-325 MG TABLET 1 TAB PO (10:46)
[2024-03-22 10:59] VITALS: BP 130/83; PULSE 62; RESP 16; TEMP 36.8; O2SAT 100
--- NOTE | 2024-03-22 11:00 | PC.NURSE ---
ERP notified of pt's continued complaint of sever right testicle burning. ERP went to bedside and examined pt's testicle. No discoloration or swelling noted. ERP educated pt. Told him to return to ER if pain persists or condition worsens after 3 days.
== END 2024-03-22 11:22 | disposition home or self-care (01) ==
PROVIDERS: Emergency Provider Family Medicine; PCP Family Medicine
DX: S39.012A Strain of muscle, fascia and tendon of lower back, initial encounter (principal); M54.16 Radiculopathy, lumbar region; I10 Essential (primary) hypertension; F17.210 Nicotine dependence, cigarettes, uncomplicated; X50.0XXA Overexertion from strenuous movement or load, initial encounter
CPT/HCPCS: 72100; 96372; 99284; A9270; J1100; J1885

== ENCOUNTER 2024-04-05 14:36 | Outpatient (RCR) | payer OTHER, SELFPAY ==
--- NOTE | 2024-04-05 15:29 | OPREHPOC ---
Outpatient Therapy Plan of Care This is a Multidisciplinary Plan of Care that may contain components documented by all disciplines (PT, OT, and ST.) PT Problem 1 PT Problem #1 Knowledge Deficit PT Goal 1 Goal / Goal Update 1. independent and compliant with HEP Target Visit 6 PT Problem 2 PT Problem #2 Pain PT Goal 1 Goal / Goal Update 1. decrease pain at worst to 2/10 or less in the lower back 2. no radicular symptoms down the R LE. Target Visit 12 PT Problem 3 PT Problem #3 Impaired Range of Motion PT Goal 1 Goal / Goal Update 1. full active lumbar mobility without increased pain Target Visit 12 PT Problem 4 PT Problem #4 Impaired Strength PT Goal 1 Goal / Goal Update 1. 5/5 bilateral hip strength 2. 5/5 bilateral knee strength 3. 5/5 bilateral ankle DF Target Visit 12 PT Problem 5 PT Problem #5 Impaired Functional Mobil PT Goal 1 Goal / Goal Update 1. oswestry to display less than 20% functional deficits 2. patient to sit and stand without increased pain for more than 2 hours each 3. patient to display safe squat mechanics to lift 50lbs without pain Target Visit 12
--- NOTE | 2024-04-05 15:29 | PTOPEVAL1 ---
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 he reports it was an unequal lift. he reports he moved awkwardly and hurt his back. he reports he was off for 3 days, tried to go back to work for a few day, and then has been off since 03/30/24. he reports he has had xrays. he reports the results were negative. he reports the pulled muscle does not seem to be getting better. he reports he does have a history of bulged discs. he reports he has increased pain with sitting, standing, walking, movement. he reports he feels stiff all the time. he reports he does have NTB down the R LE. he reports he was put on mm relaxers and some prescription ibuprofen. he reports he has also been given a steroid. to return to work he must stand all day, and lift moderate to heavy weight daily. Reported Pain Level Pain Score 8: Self Report Assessment PT Clinical Summary mr. mckinley is a 48 yo man who injured his lower back at work during a lifting incident. he presents today with pain at rest, pain with sitting/standing, and pain with any lifting. 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 he would benefit from continued skilled PT services to improve his objective/ functional deficits to be able to return to prior level work and functional activity performance. Plan of Care Interventions Electrical Stimulation,Gait Training,Hot Pack/Cold Pack,Manual Therapy,Mechanical Traction,Neuro Re- education,Patient/Caregiver Educati,Therapeutic Activities,Therapeutic Exercise PT Services Indicated Yes Treatment Frequency and 3x weekly for 12 visits Duration These treatments will address the objective and functional deficits as defined above. The patient will be advanced safely and appropriately in order for the patient to progress towards his/her prior level of function. Additional exercises will be introduced and as well as a comprehensive home exercise program upon discharge, if needed, ?to ensure carryover of functional gains achieved in the clinic. This treatment plan has been reviewed and agreement upon by the patient.
--- NOTE | 2024-04-18 09:48 | PCPTNOTE ---
pt rescheduled todays apt due to a work meeting.
--- NOTE | 2024-04-19 07:48 | PCPTNOTE ---
patient cancelled appointment. no reason given
--- NOTE | 2024-04-29 08:31 | OPREHPOC ---
Outpatient Therapy Plan of Care This is a Multidisciplinary Plan of Care that may contain components documented by all disciplines (PT, OT, and ST.) PT Problem 1 PT Problem #1 Knowledge Deficit PT Goal 1 Goal / Goal Update 1. independent and compliant with HEP Target Visit 6 Progress Met PT Problem 2 PT Problem #2 Pain PT Goal 1 Goal / Goal Update 1. decrease pain at worst to 2/10 or less in the lower back 2. no radicular symptoms down the R LE. Target Visit 12 Progress Partially Met PT Problem 3 PT Problem #3 Impaired Range of Motion PT Goal 1 Goal / Goal Update 1. full active lumbar mobility without increased pain Target Visit 12 Progress Met PT Problem 4 PT Problem #4 Impaired Strength PT Goal 1 Goal / Goal Update 1. 5/5 bilateral hip strength 2. 5/5 bilateral knee strength 3. 5/5 bilateral ankle DF Target Visit 12 PT Problem 5 PT Problem #5 Impaired Functional Mobil PT Goal 1 Goal / Goal Update 1. oswestry to display less than 20% functional deficits 2. patient to sit and stand without increased pain for more than 2 hours each 3. patient to display safe squat mechanics to lift 50lbs without pain Target Visit 12
--- NOTE | 2024-04-29 08:31 | PTOPPROG ---
Assessment and note entered by JT File, PT Evaluation Information Assessment Status Progress ICD-10 Condition Codes (PT) Pain in low back M54.50 Onset 03/22/24 Subjective Information patient reports his back is Good today. he reports yesterday was a bit worse, but today he is good. he reports he feels he is 75% back to normal since his injury. he reports he is planning to return to work on light duty next week. however, he has a follow up with his MD prior to returning. he reports he has no pain down the R LE when up and moving, but at times does still get some down the R LE when he is sleeping. Assessment PT Clinical Summary mr. mckinley presents to skilled PT for his 10th skilled PT visit today. he reports improvement in his mobility, function, and quality of life. he reports he has not yet tried to return to work, but is planning to return to light duty to start next week. he displays an improvement on the oswestry from 72% functional decline to 12% functional decline today. he also displays full active rom of the lumbar spine without pain. he has been tolerating core strengthening and exercise progression well thus far in skilled PT. he will benefit from continued skilled PT per initial POC. Plan of Care Interventions Electrical Stimulation,Gait Training,Hot Pack/Cold Pack,Manual Therapy,Mechanical Traction,Neuro Re- education,Patient/Caregiver Educati,Therapeutic Activities,Therapeutic Exercise PT Services Indicated Yes Treatment Frequency and continue skilled PT per initial POC. Duration These treatments will address the objective and functional deficits as defined above. The patient will be advanced safely and appropriately in order for the patient to progress towards his/her prior level of function. Additional exercises will be introduced and as well as a comprehensive home exercise program upon discharge, if needed, ?to ensure carryover of functional gains achieved in the clinic. This treatment plan has been reviewed and agreement upon by the patient.
--- NOTE | 2024-05-05 16:03 | OPREHPOC ---
Outpatient Therapy Plan of Care This is a Multidisciplinary Plan of Care that may contain components documented by all disciplines (PT, OT, and ST.) PT Problem 1 PT Problem #1 Knowledge Deficit PT Goal 1 Goal / Goal Update 1. independent and compliant with HEP Target Visit 6 Progress Met PT Problem 2 PT Problem #2 Pain PT Goal 1 Goal / Goal Update 1. decrease pain at worst to 2/10 or less in the lower back 2. no radicular symptoms down the R LE. Target Visit 12 Progress Met PT Problem 3 PT Problem #3 Impaired Range of Motion PT Goal 1 Goal / Goal Update 1. full active lumbar mobility without increased pain Target Visit 12 Progress Met PT Problem 4 PT Problem #4 Impaired Strength PT Goal 1 Goal / Goal Update 1. 5/5 bilateral hip strength 2. 5/5 bilateral knee strength 3. 5/5 bilateral ankle DF Target Visit 12 Progress Met PT Problem 5 PT Problem #5 Impaired Functional Mobil PT Goal 1 Goal / Goal Update 1. oswestry to display less than 20% functional deficits. met 2. patient to sit and stand without increased pain for more than 2 hours each. met 3. patient to display safe squat mechanics to lift 50lbs without pain. met Target Visit 12 Progress Met
--- NOTE | 2024-05-05 16:04 | PTOPDC ---
Assessment and note entered by JT File, PT Evaluation Information Assessment Status Discharge ICD-10 Condition Codes (PT) Pain in low back M54.50 Onset 03/22/24 Subjective Information patient reports he feels good today. he reports he is ready to return to work. he reports he does not have any pain in the lower back, and does not experience symptoms down the R LE, except will occasionally have a pull when sleeping. Reported Pain Level Pain Score 0: Self Report Assessment PT Clinical Summary mr. mckinley presents to skilled PT for his 12th skilled PT visit. he presents today with reduction of all symptoms, return to full strength , return to full rom, and safe functional lifting mechanics of moderately heavy weight. he is ready to return to work, and will DC skilled PT today. he has met all goals for skilled PT. he will continue with HEP independent at home. Plan of Care PT Services Indicated Yes
== END 2024-05-05 16:00 | disposition home or self-care (01) ==
LOC: CHSPT 14:36
PROVIDERS: Visit Provider Family Medicine
DX: M54.50 Low back pain, unspecified (principal)
CPT/HCPCS: 97012; 97014; 97110; 97140; 97161; 97530; G0283

== ENCOUNTER 2024-04-13 11:15 | Outpatient (CLI) | payer OTHER, SELFPAY ==
--- NOTE | 2024-05-25 08:15 | WPDHOLTEREM ---
Holter/Event Monitor Holter/Event Monitor Date of procedure: 04/13/24 Holter/Event Procedure: Event Monitor Indications: Palpitations Conclusion: 1. 17 days event monitor between 04/13/24-05/12/24. There are 27 available transmissions for analysis. 2. Underlying rhythm is sinus rhythm. HR range 49-147 bpm; average HR 72 bpm. HR at 49 bpm was on 05/01/24 at 23:39. HR at 147 bpm was on 04/30/24 at 17:00. 3. No premature supraventricular complexes. No supraventricular tachycardia. 4. There are occasional premature ventricular complexes with total burden of 2%. No ventricular tachycardia. 5. No significant pauses greater than 2 seconds. 6. Patient reports 8 episodes of symptoms of lightheadedness, heart racing, shortness of breath and symptoms other than listed which demonstrate sinus rhythm, HR range 56-105 bpm with 4 episodes with PVC's.
== END 2024-04-13 11:16 | disposition home or self-care (01) ==
LOC: CHSCARD 11:17
PROVIDERS: PCP Family Medicine; Visit Provider Family Medicine
DX: R00.2 Palpitations (principal)
CPT/HCPCS: 93270

== ENCOUNTER 2024-04-15 08:56 | Outpatient (CLI) | payer OTHER, SELFPAY | END 2024-04-15 08:57 | disposition home or self-care (01) | LOC: CHSCARD 08:59 | PROVIDERS: PCP Family Medicine; Visit Provider Family Medicine | DX: R06.3 Periodic breathing (principal) | CPT/HCPCS: 94060; 94726; 94729 ==

== ENCOUNTER 2024-05-02 12:44 | Outpatient (CLI) | payer OTHER, SELFPAY ==
--- NOTE | ~2024-05-02 | CT_ITS ---
CT Scan of the Chest without Contrast: Clinical Indication: Lung cancer screening, nicotine dependence Technique: Contiguous sections were acquired throughout the chest without intravenous contrast. Dose reduction technique was used on this scan by utilizing automated exposure control and iterative recon struction technique. The dose-length product (DLP) was 83.15 mGy-cm. Findings: There is no evidence of any significant mediastinal, hilar or axillary lymphadenopathy. The mediastin al soft tissues appear normal. There is no evidence of pleural or pericardial effusion. 7 mm pleural-based nodule noted at the right lower lobe (axial image 57). 4 mm right middle lobe pulm onary nodule present (axial image 80). 2 mm left upper lobe nodule noted (axial image 67). Additional 3 mm left upper lobe pulmonary nodule present (axial image 46). Images through the upper abdomen reveal no abnormalities. Impression: Lung RADS 3: Probably benign. Six-month follow-up CT advised. Reviewed, dictated and finalized at [facility]. Impression: Lung RADS 3: Probably benign. Six-month follow-up CT advised.
== END 2024-05-02 12:45 | disposition home or self-care (01) ==
LOC: CHSIMG 12:46
PROVIDERS: PCP Family Medicine; Visit Provider Family Medicine
DX: Z12.2 Encounter for screening for malignant neoplasm of respiratory organs (principal); R05.3 Chronic cough; Z87.891 Personal history of nicotine dependence; R91.8 Other nonspecific abnormal finding of lung field
CPT/HCPCS: 71271

== ENCOUNTER 2024-05-07 08:49 | Outpatient (CLI) | payer OTHER, SELFPAY ==
--- NOTE | ~2024-05-07 | MR_ITS ---
EXAMINATION: MR brain/brain stem wo/w con DATE: 05/07/2024 10:23 INDICATION: Unspecified convulsions TECHNIQUE: Magnetic resonance imaging (MRI) of the brain and brainstem was performed without intraven ous contrast. Sequences included sagittal and axial T1-weighted SE, axial diffusion-weighted FS EPI A SSET, axial T2*-weighted GRE, axial T2-weighted FLAIR Propeller, and axial T2-weighted Propeller. Pos tcontrast axial and coronal T1-weighted SE was obtained. Apparent diffusion coefficient (ADC) maps we re created. COMPARISON: None. FINDINGS: No abnormal restricted diffusion to suggest acute ischemic infarct. No MRI evidence of hemorrhage or extra-axial collection. No suspicious foci of susceptibility to suggest prior intraparenchymal hemorr martha. Normal white matter signal. No evidence of advanced or lobar predominant parenchymal volume los s. The basilar cisterns are patent. Flow voids are preserved. Nodular mucosal thickening in the bilat eral maxillary sinuses, mild ethmoid mucosal thickening, the remaining aerated spaces are within norm al limits. Globes and orbital contents are within normal limits. No abnormal enhancement. IMPRESSION: Normal MR brain findings Reviewed, dictated and finalized at location K. IMPRESSION: Normal MR brain findings
== END 2024-05-07 08:50 | disposition home or self-care (01) ==
LOC: CHSIMG 08:50
PROVIDERS: PCP Family Medicine; Visit Provider Family Medicine
DX: R56.9 Unspecified convulsions (principal)
CPT/HCPCS: 70553; A9577

== ENCOUNTER 2024-07-14 08:41 | Outpatient (CLI) | payer OTHER, SELFPAY ==
--- NOTE | 2024-07-14 18:42 | WPDNEUROLOGY ---
Neurology EEG Report General Information Date of Study: 07/14/24 TEST Electroencephalogram DIAGNOSIS seizure disorder CONDITION OF RECORDING neurodiagnostic lab EEG NUMBER [id number] CLINICAL HISTORY history of bipolar disorder and episodes of shaking, possible seizure-like activity EEG DESCRIPTION During wakefulness the background activity consists of posterior dominant alpha rhythm at approximately 10 hertz with an amplitude of 25-50 microvolts which appears well-formed and reactive drive me. Anteriorly low amplitude mixed frequency activity was seen. There is a good anteroposterior gradient. Hyperventilation Was not performed. During drowsiness attenuation of background activity seen. Patient did not progress to stage 2 sleep. Photic stimulation was performed during which no significant abnormal background changes were seen. No appreciable driving response was noted. IMPRESSION This is a normal EEG obtained during awake and drowsy states.
== END 2024-07-14 08:42 | disposition home or self-care (01) ==
LOC: ANHNEURO 08:43
PROVIDERS: PCP Family Medicine; Visit Provider Family Medicine
DX: R56.9 Unspecified convulsions (principal)
CPT/HCPCS: 95816

== ENCOUNTER 2024-08-18 09:11 | Emergency (ER) | payer OTHER, SELFPAY ==
--- NOTE | ~2024-08-18 | XR_ITS ---
XR foot LT min 3V Ordering provider: Ever Manning MD History: . JUMPED OFF SOMETHING TALL X1DAY AGO,PAIN THRU HEEL LAT>MED . Comparison: None. FINDINGS: BONES: Highly suggestive fracture of the base of the fifth metatarsal bone. Clinical correlation for tenderness in the area advised. JOINT SPACES: Normal. No tarsal coalition. SOFT TISSUES: Normal. IMPRESSION: Highly suggestive fracture at the base of the fifth metatarsal bone. Reviewed, dictated and finalized at location A. [employer]
[2024-08-18 09:12] VITALS: BP 134/85; PULSE 75; RESP 20; TEMP 37; O2SAT 98
--- NOTE | 2024-08-18 09:23 | ED.LOWEXIN ---
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 complaint: foot injury Onset (ago): day(s) Injury: Right: foot ( heel pain) Type of Injury: blunt Place: street/outdoors Severity: severe Severity scale (1-10): 8 Relieving factors: nothing Exacerbating factors: weight bearing and palpation Context: fall Related Data Allergies Allergy/AdvReac Type Severity Reaction Status Date / Time No Known Allergies Allergy Verified 03/22/24 09:45 Review of Systems Review of Systems: All systems reviewed & are unremarkable except as noted in HPI and below PMFSH Past Medical History Medical History GERD (gastroesophageal reflux disease) Infection due to severe acute respiratory syndrome coronavirus 2 (SARS-CoV-2) Hypertension Bipolar 1 disorder Surgical History Surgical History No pertinent past surgical history Family History Family History Mother Degenerative arthritis Social History Social History Smoking packs per day: 0.5 Smoking cigarettes per day: 10.0 Years smoked: 30 Smoking pack-years: 15.00 Smoking status: Current every day smoker Tobacco type: cigarettes Alcohol intake: current Alcohol use details: occasional use - couple of drinks per month Substance use: current Substance use type: marijuana Living arrangements: with friend(s) Additional living arrangements comments: fiance Gender identity (if verbalized by the patient): Male Spiritual care concerns: No Exam Const: General: healthy appearing, no acute distress and alert Nutritional Appearance: well nourished Orientation/consciousness: patient oriented x3 Limitations: no limitations Resp: Effort & Inspection: normal respiratory effort Auscultation: clear to auscultation bilaterally Cardio: Rate: regular rate Rhythm: regular rhythm GI: GI Palp: Yes Soft to palpation Skin: General skin exam: normal color Rashes: no rashes Wounds: no wounds Neuro: General: patient oriented x3, moves all extremities and no meningeal signs Extrem: Other: Tender heel of right foot with palpation Course Course Emergency Course: Toradol given 60mg IM and after reassessment pain level has improved. X-ray performed reviewed , with no calcaneal fracture there is a area highly suggestive of fracture at the base of the 5th metatarsal on the right. Vital Signs Vital signs: Vital Signs Temperature 37.0 C 08/18/24 09:12 Pulse Rate 75 08/18/24 09:12 Respiratory Rate 20 08/18/24 09:12 Blood Pressure 134/85 08/18/24 09:12 Pulse Oximetry 98 08/18/24 09:12 Oxygen Delivery Room Air 08/18/24 09:12 Temperature 37.0 C 08/18/24 09:12 Pulse Rate 75 08/18/24 09:12 Respiratory Rate 20 08/18/24 09:12 Blood Pressure 134/85 08/18/24 09:12 Pulse Oximetry 98 08/18/24 09:12 Oxygen Delivery Room Air 08/18/24 09:12 Critical Care Time Critical Care Time Critical Care Time: No Discharge Plan Discharge Patient Language: Slovenian Prescriptions: No Action ibuprofen 800 mg tablet 800 mg PO TID PRN (Reason: pain) Qty: 30 0RF cyclobenzaprine 10 mg tablet 10 mg PO TID PRN (Reason: muscle spasm) Qty: 30 0RF Follow-up/Referrals: Hugo Weir MD [Primary Care Provider] -
[2024-08-18] MEDS: KETOROLAC (*BKC) 60 MG/2 ML VIAL IM (09:26)
== END 2024-08-18 10:11 | disposition home or self-care (01) ==
PROVIDERS: Emergency Provider Emergency Medicine; PCP Family Medicine
DX: S92.901A Unspecified fracture of right foot, initial encounter for closed fracture (principal); I10 Essential (primary) hypertension; F17.210 Nicotine dependence, cigarettes, uncomplicated; F12.90 Cannabis use, unspecified, uncomplicated; X50.0XXA Overexertion from strenuous movement or load, initial encounter; Y92.9 Unspecified place or not applicable; Y99.0 Civilian activity done for income or pay
CPT/HCPCS: 73630; 96372; 99284; J1885

== ENCOUNTER 2024-08-24 16:30 | Outpatient (CLI) | payer OTHER, SELFPAY ==
--- NOTE | ~2024-08-24 | XR_ITS ---
EXAMINATION: XR ankle RT min 3V, XR foot RT min 3V DATE: 08/24/2024 16:51 INDICATION: Right foot and ankle pain TECHNIQUE: 1. Anteroposterior, mortise, additional oblique and lateral view of the right ankle were obtained. 2. Dorsoplantar, two oblique and lateral views of the right foot were obtained. COMPARISON: Right foot radiographs dated 08/24/2024 FINDINGS: Alignment of the foot and ankle is normal. No fracture. Joint spaces are well maintained. Small Achil les calcaneal spur. No ankle joint effusion. The soft tissues are unremarkable. IMPRESSION: 1. Small Achilles calcaneal spur. Otherwise unremarkable right foot and ankle radiographs. Reviewed, dictated and finalized at location A. [employer] IMPRESSION: 1. Small Achilles calcaneal spur. Otherwise unremarkable right foot and ankle r adiographs.
== END 2024-08-24 16:31 | disposition home or self-care (01) ==
PROVIDERS: PCP Family Medicine; Visit Provider Family Medicine
DX: M25.571 Pain in right ankle and joints of right foot (principal); S92.354D Nondisplaced fracture of fifth metatarsal bone, right foot, subsequent encounter for fracture with routine healing; M77.31 Calcaneal spur, right foot
CPT/HCPCS: 73610; 73630

== ENCOUNTER 2024-09-15 07:40 | Outpatient (CLI) | payer OTHER, SELFPAY ==
--- NOTE | ~2024-09-15 | MR_ITS ---
MRI of the right foot CLINICAL HISTORY: Fifth metatarsal fracture TECHNIQUE: Coronal T1-weighted and proton-density fat-sat images, sagittal T1-weighted and STIR image s, axial proton-density and proton-density fat-sat images were performed. FINDINGS: Bone marrow signals are unremarkable. No fracture or bone marrow edema seen. No evidence fo r osteomyelitis. There are mild scattered degenerative changes throughout the interphalangeal joints of the toes. No significant joint effusion evident. No intermetatarsal bursitis or Hayden's neuroma. Visualized flexor and extensor tendons are intact. I ntrinsic musculature of the foot is unremarkable. Plantar fascia intact. No soft tissue mass or fluid collection. IMPRESSION: No acute abnormality. No fracture seen. Mild scattered degenerative changes of the interphalangeal joints of the toes. Reviewed, dictated and finalized at [facility]. 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
--- NOTE | ~2024-09-15 | MR_ITS ---
MRI of the right ankle Clinical history: Fifth metatarsal fracture Technique: Coronal proton-density and proton-density fat-sat images, axial proton-density and proton- density fat-sat images, and sagittal proton-density and proton-density fat-sat images were acquired. Findings: Syndesmotic ligaments are intact. Anterior and posterior talofibular ligament, and calcaneo fibular ligament are intact. Deltoid ligament is intact. Medial flexor tendons, peroneal tendons, anterior extensor tendons, and Achilles tendon are intact. There is no osteochondral lesion of the talar dome. Visualized bone marrow signals and joint spaces a re intact. No joint effusion evident. Plantar fascia intact. No soft tissue mass or fluid collection seen. Impression: No significant abnormality seen. Reviewed, dictated and finalized at [facility]. TY COMPANION Impression: No significant abnormality seen.
--- OUTSIDE RECORDS SUMMARY | 2024-09-15 07:46 | XMS_ITS | Clinical Summary ---
Author Organization [facility] Address [address] [place] [address] Care Team Providers Care Registered Nurse Teacher Name Role Phone Ford Leos MD Primary Care Provider [phone] Allergies No known active allergies Medications diclofenac-miSO PROStol EC (ARTHROTEC 50) 50-0.2 MG tablet Take 1 tablet by mouth 2 (two) times daily. 60 tablet Active carbamazepine 200 MG tablet Take 200 mg by mouth 2 (two) times daily. 09/08/19 25 Discontinued citalopram (CELEXA) 10 MG tablet 09/08/19 25 Discontinued magnesium oxide (MAGNESIUM-OXID E) 400 (241.3 Mg) MG tablet Take 1 tablet (400 mg total) by mouth daily. 30 tablet 9 09/08/19 25 Discontinued Encounters Date Type Department Care Team Description 09/08/2024 10:37 AM LOCK AND DAM REPAIRER - 09/08/2024 3:57 PM [facility] Emergency [place] [facility] [address] [place] [address] Josef Obrien, Chest Pain Discharge Disposition: Home or Self Care (Routine Discharge) 09/08/2024 Travel from Last 3 Months Social History Tobacco Use Types Packs/Day Years Used Date Smoking Tobacco: Some Days Smokeless Tobacco: Never Alcohol Use Standard Drinks/Week Comments No 0 (1 standard drink = 0.6 oz pur e alcohol) AUDIT-C Answer Date Recorded Frequency of Alcohol Consumption Never 05/02/2019 Average Number of Drinks Not on file 019 Frequency of Binge Drinking Not on file 04/05 Sex and Gender Information Value Date Recorded Sex Assigned at Male 09/08/2024 11:05 AM LOCK AND DAM REPAIRER Legal Sex Male 9:25 PM LOCK AND DAM REPAIRER Gender Identity Not on file Sexual Orientation Not on file Last Filed Vital Signs Vital Sign Reading Time Taken Comments Blood Pressure 109/86 09/08/2024 1:30 PM LOCK AND DAM REPAIRER Pulse 55 09/08/2024 1:30 PM LOCK AND DAM REPAIRER Temperature 36.7 C (98 F) 09/08/2024 10:45 AM LOCK AND DAM REPAIRER Respiratory Rate 10 09/08/2024 1:30 PM LOCK AND DAM REPAIRER Oxygen Saturation 99% 09/08/2024 1:30 PM LOCK AND DAM REPAIRER Inhaled Oxygen Concentration - - Weight 76.2 kg (168 lb) 09/08/2024 10:45 AM LOCK AND DAM REPAIRER Height 175.3 cm (5' 9 ) 09/08/2024 10:45 AM LOCK AND DAM REPAIRER Body Mass Index 24.81 09/08/2024 10:45 AM LOCK AND DAM REPAIRER Plan of Treatment Health Maintenance Due Date Last Done Comments Colorectal Cancer Screening Colonoscopy (10 Years) 1973 Annual Physical 1976 Pneumococcal Vaccine: Pediat rics (0 to 5 Years) and At-Risk Patients (6 to 64 Years) (1 of 2 - PCV) 1979 Hepatitis C 1991 DTaP, Tdap and Td Vaccines ( 1 - Tdap) 1992 Hepatitis B Vaccines (1 of 3 - 19+ 3-dose series) 1992 Zoster Vaccines (1 of 2) 2023 COVID-19 Vaccine ( - 2023-2 5 season) 2024 Influenza Adult (#1) 2024 Meningococcal B Vaccine Aged Out No l onger eligible based on patient's age to complete this topic Meningococcal Vaccine Aged Out No julita juliocesar eligible based on patient's age to complete this topic RSV Immunizations Under 20 Months Aged Out No longer eligible based on patient's age to complete this topic Procedures Procedure Name Priority Date/Time Associated Diagnosis Comments DRUG SCREEN RAPID STAT 09/08/2024 2:5 2 PM LOCK AND DAM REPAIRER HC URINALYSIS AUTO W/MICRO STAT 09/08/2024 2:52 PM LOCK AND DAM REPAIRER ECG 12-LEAD Routine 09/08/2024 1:48 PM LOCK AND DAM REPAIRER TROPONIN, QUANT STAT 09/08/2024 1:09 PM LOCK AND DAM REPAIRER XR FOOT RT 3V STAT 09/08/2024 11:42 AM LOCK AND DAM REPAIRER XR CHEST PORTABLE STAT 09/08/2024 11: 42 AM LOCK AND DAM REPAIRER COMPREHENSIVE METABOLIC PANEL STAT 09/08/2024 11:23 AM LOCK AND DAM REPAIRER MAGNESIUM STAT 09/08/2024 11:23 AM LOCK AND DAM REPAIRER TROPONIN, QUANT STAT 09/08/2024 11:23 AM LOCK AND DAM REPAIRER PARTIAL THROMBOPLASTIN TIME,PTT STAT 09/08/2024 11:23 AM LOCK AND DAM REPAIRER PROTHROMBIN TIME, VENOUS STAT 09/08/2024 11:23 AM LOCK AND DAM REPAIRER CBC W/DIFF AUTOMATED STAT 09/08/2024 11:23 AM LOCK AND DAM REPAIRER INFLUENZA A & B STAT 09/08/2024 11:18 AM LOCK AND DAM REPAIRER ECG 12-LEAD Routine 09/08/2024 10:41 AM LOCK AND DAM REPAIRER from Last 3 Months Results * DRUG SCREEN RAPID (09/08/2024 2:52 PM LOCK AND DAM REPAIRER) CANNABINOIDS SCREEN (U) NEGATIVE NEGATIVE 09/08/2024 3:13 PM LOCK AND DAM REPAIRER [facility] PHENCYCLIDINE PCP (U) NEGATIVE NEGATIVE 09/08/2024 3:13 PM LOCK AND DAM REPAIRER [facility] COCAINE METABOLITES (U) NEGATIVE NEGATIVE 09/08/2024 3:13 PM LOCK AND DAM REPAIRER [facility] METHAMPHETAMINE SCREEN (U) NEGATIVE NEGATIVE 09/08/2024 3:13 PM LOCK AND DAM REPAIRER [facility] OPIATE SCREEN (U) NEGATIVE NEGATIVE 025 3:13 PM LOCK AND DAM REPAIRER [facility] AMPHETAMINE SCREEN (U) NEGATIVE NEGATIVE 09/08/2024 3:13 PM LOCK AND DAM REPAIRER [facility] BENZODIAZEPINES SCREEN (U) NEGATIVE NEGATIVE 09/08/2024 3:13 PM LOCK AND DAM REPAIRER [facility] TRICYCLIC ANTIDEPRESSANT SCREEN (U) NEGATIVE NEGATIVE 09/08/2024 3:13 PM LOCK AND DAM REPAIRER [facility] METHADONE (U) NEGATIVE NEGATIVE 09/08/2024 3:13 PM LOCK AND DAM REPAIRER [facility] BARBITURATES SCREEN (U) NEGATIVE NEGATIVE 09/08/2024 3:13 PM LOCK AND DAM REPAIRER [facility] OXYCODONE SCREEN (U) NEGATIVE NEGATIVE 09/08/2024 3:13 PM LOCK AND DAM REPAIRER [facility] URINE TOX COMMENT THIS TEST METHODOLOGY IS DESIGNED AND OFFERED A RAPID TURNAROUND, QUALITATIVE SCREENING PROCEDURE TO AID IN THE IMMEDIATE MEDICAL ASSESSMENT OF PATIENTS SUSPECTED OF SUBSTANCE ABUSE. 09/08/2024 2:53 PM LOCK AND DAM REPAIRER [facility] Comment: CLINICAL CONSIDERATION AND PROFESSIONAL JUDGMENT MUST BE APPLIED TO ANY DRUG OF ABUSE TEST RESULT, BOTH POSITIVE AND NEGATIVE. CONFIRMATORY QUANTITATIVE RESULTS ARE AVAILABLE THROUGH OUR REFERENCE LAB[facility]. URINE SPECIMEN / Unknown 09/08/2024 2:52 PM LOCK AND DAM REPAIRER us Josef Obrien DO URINE ORDERABLES Final Resul t [facility] [address] [place] [address], * (ABNORMAL) URINALYSIS (09/08/2024 2:52 PM LOCK AND DAM REPAIRER) COLOR (U) YELLOW 09/08/2024 3:15 PM LOCK AND DAM REPAIRER [facility] TRANSPARENCY CLEAR 09/08/2024 3:15 PM LOCK AND DAM REPAIRER [facility] SPECIFIC GRAVITY (U) 1.020 1.000 - 1.025 09/08/2024 3:15 PM LOCK AND DAM REPAIRER [facility] U PH 7.0 5.0 - 8.0 09/08/2024 3:15 PM LOCK AND DAM REPAIRER [facility] LEUKOCYTES (U) NEGATIVE NEGATIVE 09/08/2024 3:15 PM LOCK AND DAM REPAIRER [facility] NITRITES NEGATIVE NEGATIVE 09/08/2024 3:15 PM LOCK AND DAM REPAIRER [facility] PROTEIN RANDOM (U) NEGATIVE NEGATIVE 09/08/2024 3:15 PM LOCK AND DAM REPAIRER [facility] GLUCOSE (U) NEGATIVE NEGATIVE 09/08/2024 3:15 PM LOCK AND DAM REPAIRER [facility] KETONES MG/DL (U) NEGATIVE NEGATIVE 09/08/2024 3:15 PM LOCK AND DAM REPAIRER [facility] UROBILINOGEN 0.2 <1.0 EU/DL 09/08/2024 3:15 PM LOCK AND DAM REPAIRER [facility] BILIRUBIN (U) NEGATIVE NEGATIVE 09/08/2024 3:15 PM LOCK AND DAM REPAIRER [facility] BLOOD (U) NEGATIVE NEGATIVE 09/08/2024 3:15 PM LOCK AND DAM REPAIRER [facility] WBC/HPF NONE SEEN(A) 0 - 5 /HPF 09/08/2024 3:15 PM LOCK AND DAM REPAIRER [facility] EPI/LPF 0-5 /LPF 09/08/2024 3:15 PM LOCK AND DAM REPAIRER [facility] BACTERIA (U) 1+ /HPF 09/08/2024 3:15 PM LOCK AND DAM REPAIRER [facility] URINE SPECIMEN OBTAINED BY CLEAN CATCH PROCEDURE / Unknown 09/08/2024 2:52 PM LOCK AND DAM REPAIRER us Josef Obrien DO URINE ORDERABLES Final Resul t [place] [address] [place] [address], * ECG 12 lead (09/08/2024 1:48 PM LOCK AND DAM REPAIRER) Only the most recent of2 resultswithin the time period is included. 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: : 1975 Requested By: JOSEF OBRIEN Order Number: [id number] Reading MD: Seth Cox Measurements Intervals [place] Rate: 52 P: 65 [place]: 179 QRS: 58 QRSD: 104 T: 47 QT: 442 QTc: 413 Interpretive Statements SINUS BRADYCARDIA POSSIBLE RIGHT VENTRICULAR CONDUCTION DELAY MODERATE T-WAVE ABNORMALITY, CONSIDER ANTERIOR ISCHEMIA AND DAM REPAIRER Procedure Note Seth Cox MD - 09/08/2024 [place] [id number] [facility] [place] [address] Test Date: 2024-09-08 Pat Name: JR LOCKE Department: 3 Room: EXAM 303 Gender: Male Director Of Financial Planning: : 1975 Requested By: JOSEF OBRIEN Order Number: [id number] Reading MD: eSth Cox Measurements Intervals [place] Rate: 52 P: 65 OH: 179 QRS: 58 QRSD: 104 T: 47 QT: 442 QTc: 413 Interpretive Statements SINUS BRADYCARDIA POSSIBLE RIGHT VENTRICULAR CONDUCTION DELAY MODERATE T-WAVE ABNORMALITY, CONSIDER ANTERIOR ISCHEMIA AND DAM REPAIRER Josef Obrien DO ECG ORDERABLES Final Result Performing Organization Address [facility] Co de Phone Number [facility] * TROPONIN, QUANT (09/08/2024 1:09 PM LOCK AND DAM REPAIRER) Only the most recent of2 resultswithin the time period is included. TROPONIN I HIGH SENSITIVITY 4 0 - 76 ng/L 09/08/2024 1:32 PM LOCK AND DAM REPAIRER [facility] 09/08/2024 1:09 PM LOCK AND DAM REPAIRER Josef Obrien DO LABORATORY Final Result Performing Organization Address [facility] Co de Phone Number [facility] [address] [place] [address], * XR FOOT RT 3V (09/08/2024 11:42 AM LOCK AND DAM REPAIRER) Anatomical Region Laterality Modality Foot Radiographic Mary ging 09/08/2024 11:5 4 AM LOCK AND DAM REPAIRER Impressions 09/08/2024 11:56 AM LOCK AND DAM REPAIRER IMPRESSION: 1. No acute findings. 2. Tiny calcaneal spurs. Ordered By: JOSEF OBRIEN Interpreted By: Yasir Thibodeaux MD, 09/08/2024 11:54 AM Narrative 09/08/2024 11:56 AM LOCK AND DAM REPAIRER [address] [place] [address] Examination: Right foot. Exam time: 1128 hours. Clinical history: Pain. Patient reports fifth metatarsal fracture. Comparison: None. Technique: Three views. Findings: No acute or healing fracture is identified, attention directed to the fifth metatarsal. Os peroneum, accessory ossicle, is present. There are tiny plantar and Achilles calcaneal spurs. No other significant bone or joint abnormality is noted. Incidental bone island in the first distal phalanx is noted. No acute soft tissue abnormality. Procedure Note Yasir Thibodeaux MD - 09/08/[address] [place] [address] Examination: Right foot. Exam time: 1128 hours. Clinical history: Pain. Patient reports fifth metatarsal fracture. Comparison: None. Technique: Three views. Findings: No acute or healing fracture is identified, attention directedto the fifth metatarsal. Os peroneum, accessory ossicle, is present. Thereare tiny plantar and Achilles calcaneal spurs. No other significant boneor joint abnormality is noted. Incidental bone island in the first distalphalanx is noted. No acute soft tissue abnormality. IMPRESSION: 1. No acute findings. 2. Tiny calcaneal spurs. Ordered By: JOSEF OBRIEN Interpreted By: Yasir Thibodeaux MD, 09/08/2024 11:54 AM us Josef Obrien DO GENERAL IMAGING Final Result * XR CHEST PORTABLE (09/08/2024 11:42 AM LOCK AND DAM REPAIRER) Anatomical Region Laterality Modality Chest Radiographic Mary ging 09/08/2024 11:5 0 AM LOCK AND DAM REPAIRER Impressions 09/08/2024 11:51 AM LOCK AND DAM REPAIRER IMPRESSION: No significant change. No acute disease. Ordered By: JOSEF OBRIEN Interpreted By: Yasir Thibodeaux MD, 09/08/2024 11:50 AM Narrative 09/08/2024 11:51 AM LOCK AND DAM REPAIRER [address] [place] [address] Examination: Portable chest. Exam time: 1126 hours. Clinical history: Chest pain. Comparison: 05/17/2017. Technique: AP upright view. Findings: Allowing for differences in projection and rotation, the cardiomediastinal silhouette is stable. The heart remains within normal limits for size. Pulmonary vascularity is within normal limits. The lungs and pleural spaces appear free of any active process. The visualized bony thorax is stable. Procedure Note Yasir Thibodeaux MD - 09/08/[address] [place] [address] Examination: Portable chest. Exam time: 1126 hours. Clinical history: Chest pain. Comparison: 05/17/2017. Technique: AP upright view. Findings: Allowing for differences in projection and rotation, thecardiomediastinal silhouette is stable. The heart remains within normallimits for size. Pulmonary vascularity is within normal limits. The lungsand pleural spaces appear free of any active process. The visualized bonythorax is stable. IMPRESSION: No significant change. No acute disease. Ordered By: JOSEF OBRIEN Interpreted By: Yasir Thibodeaux MD, 09/08/2024 11:50 AM us Josef Obrien DO GENERAL IMAGING Final Result * (ABNORMAL) PARTIAL THROMBOPLASTIN TIME,PTT (09/08/2024 11:23 AM LOCK AND DAM REPAIRER) PTT 39.2(H) 25.1 - 36.5 SEC 09/08/2024 11:39 AM LOCK AND DAM REPAIRER [facility] 09/08/2024 11:2 3 AM LOCK AND DAM REPAIRER us Josef Obrien DO LABORATORY Final Result Performing Organization Address City/[facility]/ZIP Co de Phone Number [facility] [address] [place] [address], * PROTIME/INR, VENOUS (09/08/2024 11:23 AM LOCK AND DAM REPAIRER) PROTIME 11.7 9.4 - 12.5 SEC 09/08/2024 11:39 AM LOCK AND DAM REPAIRER [facility] INR 1.0 0.8 - 1.0 09/08/2024 11:39 AM LOCK AND DAM REPAIRER [facility] 09/08/2024 11:2 3 AM LOCK AND DAM REPAIRER us Josef Obrien DO LABORATORY Final Result Performing Organization Address [facility] Co de Phone Number [facility] [address] [place] [address], [place] [phone] * (ABNORMAL) COMPREHENSIVE METABOLIC PANEL (09/08/2024 11:23 AM LOCK AND DAM REPAIRER) SODIUM S/P/B 140 136 - 145 MMOL/L 09/08/2024 11:49 AM [facility] POTASSIUM S/P/B 4.2 3.5 - 5.1 MMOL/L 09/08/2024 11:49 AM [facility] CHLORIDE S/P/B 106 98 - 107 MMOL/L 09/08/2024 11:49 AM [facility] CO2 25.4 21.0 - 32.0 MMOL/L 09/08/2024 11:49 AM [facility] GLUCOSE 91 70 - 99 MG/DL 09/08/2024 11:49 AM [facility] Comment: FASTING GLUCOSE 100 TO 125 MG/DL IS CONSISTENT WITH IMPAIRED FASTING GLUCOSE. FASTING GLUCOSE >125 MG/DL IS CONSISTENT WITH DIABETES. RANDOM GLUCOSE >200 MG/DL WITH HYPERGLYCEMIC SYMPTOMS IS CONSISTENT WITH DIABETES. PER ADA GUIDELINES BUN 11 6 - 24 MG/DL 09/08/2024 11:49 AM [facility] CREATININE S/P/B 1.04 0.70 - 1.30 MG/DL 09/08/2024 11:49 AM [facility] CALCIUM S/P/B 9.1 8.4 - 10.5 MG/DL 09/08/2024 11:49 AM [facility] BILIRUBIN TOTAL S/P/B 0.4 0.2 - 1.0 MG/DL 09/08/2024 11:49 AM [facility] Comment: THIS ASSAY IS NOT RECOMMENDED FOR PATIENTS UNDERGOING TREATMENT WITH ELTROMBOPAG DUE TO THE POTENTIAL FOR FALSELY ELEVATED RESULTS. ALKALINE PHOSPHATASE S/P/B 120(H) 45 - 115 U/L 09/08/2024 11:49 AM [facility] AST 15 15 - 37 U/L 09/08/2024 11:49 AM [facility] ALT 29 16 - 63 U/L 09/08/2024 11:49 AM [facility] TOTAL PROTEIN S/P/B 7.2 6.4 - 8.2 G/DL 09/08/2024 11:49 AM [facility] ALBUMIN S/P/B 3.9 3.4 - 5.0 G/DL 09/08/2024 11:49 AM [facility] ANION GAP 8.6 5.0 - 15.0 MMOL/L 09/08/2024 11:49 AM [facility] OSMOLALITY (CALC) 289 MOSM/KG 025 11:49 AM [facility] Comment:REFERENCE RANGE NOT ESTABLISHED GFR ESTIMATE 87(L) >89 ML/MIN/1. 73 M2 09/08/2024 11:49 AM [facility] GFR NOTES GFR REFERENCE S: 09/08/2024 11:49 AM [facility] Comment: THE ESTIMATED GFR IS CALCULATED USING THE 2020 CKD-EPI EQUATION. THE FOLLOWING CATEGORIES FOR GRADING RENAL FUNCTION ARE RECOMMENDED BY THE INTERNATIONAL SOCIETY OF NEPHROLOGY (KDIGO 2012 CLINICAL PRACTICE GUIDELINE). G1,NORMAL OR HIGH: >89 ml/min/1.73 m2 G2,MILDLY DECREASED: 60-89 ml/min/1.73 m2 G3A,MILDLY TO MODERATELY DECREASED: 45-59 ml/min/1.73 m2 G3B,MODERATELY TO SEVERELY DECREASED: 30-44 ml/min/1.73 m2 G4,SEVERELY DECREASED: 15-29 ml/min/1.73 m2 G5,KIDNEY FAILURE: <15 ml/min/1.73 m2 09/08/2024 11:2 3 AM LOCK AND DAM REPAIRER Josef Obrien DO LABORATORY Final Result [facility] [address] [place] [address], * CBC W/DIFF AUTOMATED (09/08/2024 11:23 AM LOCK AND DAM REPAIRER) WBC 7.03 4.00 - 10.80 x10'3/uL 09/08/2024 11:29 AM [facility] RBC 5.28 4.50 - 6.10 x10'6/uL 09/08/2024 11:29 AM [facility] HGB 15.6 13.0 - 18.0 G/DL 09/08/2024 11:29 AM [facility] HCT 45.3 37.0 - 52.0 % 09/08/2024 11:29 AM [facility] MCV 85.8 78.0 - 100.0 FL 09/08/2024 11:29 AM [facility] MCH 29.5 27.0 - 31.0 PG 09/08/2024 11:29 AM [facility] MCHC 34.4 33.0 - 36.0 G/DL 09/08/2024 11:29 AM [facility] RDW 12.4 11.5 - 14.5 % 09/08/2024 11:29 AM [facility] PLT 239 150 - 350 x10'3/uL 09/08/2024 11:29 AM [facility] MPV 10.3 7.4 - 10.4 FL 09/08/2024 11:29 AM [facility] CBC COMMENT NORMAL REFERENCE RANGE NOT ESTABLISHED FOR THE PROPORTIONAL LEUKOCYTE DIFFERENTIAL. 09/08/2024 11:29 AM [facility] NEUTROPHILS % 57.6 % 09/08/2024 11:29 AM [facility] LYMPHOCYTES % 31.2 % 09/08/2024 11:29 AM [facility] MONOCYTES % 7.3 % 09/08/2024 11:29 AM [facility] EOSINOPHILS % 2.8 % 09/08/2024 11:29 AM [facility] BASOPHILS % 0.7 % 09/08/2024 11:29 AM [facility] IMMATURE GRANS % 0.4 % 09/08/19 11:29 AM [facility] NRBC % 0.0 % 09/08/2024 11:29 AM [facility] ABS. NEUTROPHILS 4.05 1.60 - 8.30 x10'3/uL 09/08/2024 11:29 AM [facility] ABS. LYMPHOCYTES 2.19 0.80 - 4.70 x10'3/uL 09/08/2024 11:29 AM [facility] ABS. MONOCYTES 0.51 0.00 - 1.50 x10'3/uL 09/08/2024 11:29 AM [facility] ABS. EOSINOPHILS 0.20 0.00 - 0.40 x10'3/uL 09/08/2024 11:29 AM [facility] ABS. BASOPHILS 0.05 0.00 - 0.20 x10'3/uL 09/08/2024 11:29 AM [facility] ABS. IMMATURE GRANULOCYTES 0.03 0.00 - 0.03 x10'3/uL 09/08/2024 11:29 AM [facility] ABS. NUCLEATED RBC'S 0.00 0.00 - 0.01 x10'3/uL 09/08/2024 11:29 AM [facility] 09/08/2024 11:2 3 AM LOCK AND DAM REPAIRER us Josef Obrien DO LABORATORY Final Result [facility] [address] [place] [id number], * MAGNESIUM (09/08/2024 11:23 AM LOCK AND DAM REPAIRER) MAGNESIUM 2.0 1.8 - 2.4 MG/DL 09/08/2024 11:49 AM LOCK AND DAM REPAIRER [facility] 09/08/2024 11:2 3 AM LOCK AND DAM REPAIRER us Josef Obrien DO LABORATORY Final Result Performing Organization Address [facility] Co de Phone Number [facility] [address] [place] [address], * INFLUENZA A & B (09/08/2024 11:18 AM LOCK AND DAM REPAIRER) SPECIMEN TYPE (INFLUENZA) NASOPHARYNGEAL SWAB 09/08/2024 11:23 AM LOCK AND DAM REPAIRER [facility] INFLUENZA A NEGATIVE NEGATIVE 09/08/2024 11:48 AM LOCK AND DAM REPAIRER [facility] INFLUENZA B NEGATIVE NEGATIVE 09/08/2024 11:48 AM LOCK AND DAM REPAIRER [facility] Comment: A NEGATIVE RESULT DOES NOT EXCLUDE INFLUENZA VIRUS INFECTION. IF INFLUENZA IS CIRCULATING IN YOUR COMMUNITY, A DIAGNOSIS OF INFLUENZA SHOULD BE CONSIDERED BASED ON A PATIENT'S CLINICAL PRESENTATION AND EMPIRIC ANTIVIRAL TREATMENT SHOULD BE CONSIDERED IF INDICATED. NASAL NASOPHARYNGEAL SWAB / Unknown 09/08/2024 11:18 AM LOCK AND DAM REPAIRER us Josef Obrien DO MICROBIOLOGY - GENERAL ORDER BELINDA Final Result Performing Organization Address City/[facility]/ZIP Co de Phone Number [facility] [address] [place] [id number], from Last 3 Months Insurance Care Teams Registered Nurse Teacher Relationship Specialty Start Date End Date Ford Leos MD PCP - General FAMILY PRACTICE 05/02/19
--- OUTSIDE RECORDS SUMMARY | 2024-09-15 07:46 | XMS_ITS | Data Portability ---
Author Organization [facility], [address] Neurology ([facility]) Address [address] [place] [address] [address] [place] [address] Assessment No assessment recorded. Plan of Treatment Reminders Order Date Submit Date Provider Last Modified By Organization Details Last Modified Time Details Appointments None recorded. Lab urinalysi s complete, reflex culture 2023 giovana [facility], [address] [place] [address], [id number], 4 14:12:46 Referral None recorded. Procedures None recorded. Surgeries None recorded. Imaging None recorded. Medication Orders meloxicam 15 mg tablet 2023 [facility], [address] [place], [address], 4 14:12:46 Patient TargetsNo targets recorded. Patient InstructionsNo instructions recorded. Reason for Referral None Reported. Results Created Date Observation Date Name Description Value Unit Range Abnormal Flag Note LastModifiedBy Organization Detail LastModifiedTime 12/10/1912/11/2023 urina lysis compl ete, refle x cultu re urinalysis w/reflex cult LOW LEVEL S OF HEMOG LOBIN IN ABSEN CE OF HEMAT URIA MAY NOT BE CLINI TATA SIGNI FICAN T. Not Available [facility] [address] [place] [address], [id number], 12/11/2023 11:15:24 12/10/19 24 12/11/2023 urina lysis compl ete, refle x cultu re color DARK YELLOW Dipst ick may be inacc urate due to the color of the urine Not Available [facility] - [facility] [address] [place] [address], [id number], 12/11/2023 11:15:24 12/10/19 24 12/11/2023 urina lysis compl ete, refle x cultu re clarity CLEAR Not Available [facility] [address] [place] [address], [id number], 12/11/2023 11:15:24 12/10/19 24 12/11/2023 urina lysis compl ete, refle x cultu re pH 5.5 5.0-7. 5 Not Available [facility] [address] [place] [address], [id number], 12/11/2023 11:15:24 12/10/19 24 12/11/2023 urina lysis compl ete, refle x cultu re specific gravity 1.032 1.000- 1.030 high Not Available [facility] [address] [place] [address], [id number], 12/11/2023 11:15:24 12/10/19 24 12/11/2023 urina lysis compl ete, refle x cultu re blood NEGATI VE negati ve Not Available [facility] [address] [place] [address], [id number], 12/11/2023 11:15:24 12/10/19 24 12/11/2023 urina lysis compl ete, refle x cultu re bilirubin NEGATI VE negati ve Not Available [facility] [address] [place] [address], [id number], 12/11/2023 11:15:24 12/10/19 24 12/11/2023 urina lysis compl ete, refle x cultu re urobilinogen 0.2 0.2-1. 0 Not Available [facility] [address] [place] [address], [id number], 12/11/2023 11:15:24 12/10/19 24 12/11/2023 urina lysis compl ete, refle x cultu re ketone NEGATI VE negati ve Not Available [facility] [address] [place] [address], [id number], 12/11/2023 11:15:24 12/10/19 24 12/11/2023 urina lysis compl ete, refle x cultu re glucose NEGATI VE negati ve Not Available [facility] [address] [place] [address], [id number], 12/11/2023 11:15:24 12/10/19 24 12/11/2023 urina lysis compl ete, refle x cultu re protein NEGATI VE negati ve Not Available [facility] [address] [place] [address], [id number], 12/11/2023 11:15:24 12/10/19 24 12/11/2023 urina lysis compl ete, refle x cultu re nitrite NEGATI VE negati ve Not Available [facility] [address] [place] [address], [id number], 12/11/2023 11:15:24 12/10/19 24 12/11/2023 urina lysis compl ete, refle x cultu re leukocytes NEGATI VE negati ve Not Available [facility] [address] [place] [address], [id number], 12/11/2023 11:15:24 12/10/19 24 12/11/2023 urina lysis compl ete, refle x cultu re review * Micro scopi c resul ts revie wed by Techn [facility] st. Not Available Ne Only - [facility] [address] [place] [address], [id number], 12/11/2023 11:15:24 12/10/19 24 12/11/2023 urina lysis compl ete, refle x cultu re RBC 0-2 0-2/hp f Not Available [facility] - [facility] [address] [place] [address], [id number], 12/11/2023 11:15:24 12/10/19 24 12/11/2023 urina lysis compl ete, refle x cultu re WBC 0-5 0-5/hp f Not Available [facility] - [facility] [address] [place] [address], [id number], 12/11/2023 11:15:24 12/10/19 24 12/11/2023 urina lysis compl ete, refle x cultu re squamous epithelial 0-2 0-10/h pf Not Available [facility] [address] [place] [address], [id number], 12/11/2023 11:15:24 12/10/19 24 12/11/2023 urina lysis compl ete, refle x cultu re bacteria NONE SEEN none Not Available Ne Only - [facility] [address] [place] [address], [id number], 12/11/2023 11:15:24 12/10/19 24 12/11/2023 urina lysis compl ete, refle x cultu re hyaline cast 0-2 0-2/lp f Not Available [facility] - [facility] [address] [place] [address], [id number], 12/11/2023 11:15:24 12/10/19 24 12/11/2023 urina lysis compl ete, refle x cultu re calcium oxalate crystal PRESEN T absent abnormal Not Available Ne Only - c [facility] [address] [place] [address], [id number], 12/11/2023 11:15:24 12/10/19 24 12/10/2023 urina lysis , refle x cultu re color dark yellow dipst ick may BE inacc urate due to the color of the urine ----- Not Available Not Available 07/28/2024 23:54:09 12/10/19 24 12/10/2023 urina lysis , refle x cultu re clarity clear Not Available Not Availa ble 07/28/2024 23:54:09 12/10/19 24 12/10/2023 urina lysis , refle x cultu re pH 5.5 5.0-7. 5 Not Available Not Available 07/28/2024 23:54:09 12/10/19 24 12/10/2023 urina lysis , refle x cultu re specific gravity 1.032 1.000- 1.030 high Not Available Not Available 07/28/2024 23:54:09 12/10/19 24 12/10/2023 urina lysis , refle x cultu re blood negati ve negati ve Not Available Not Available 07/28/2024 23:54:09 12/10/19 24 12/10/2023 urina lysis , refle x cultu re bilirubin negati ve negati ve Not Available Not Available 07/28/2024 23:54:09 12/10/19 24 12/10/2023 urina lysis , refle x cultu re urobilinogen 0.2 0.2-1. 0 Not Available Not Available 07/28/2024 23:54:09 12/10/19 24 12/10/2023 urina lysis , refle x cultu re ketone negati ve negati ve Not Available Not Available 07/28/2024 23:54:09 12/10/19 24 12/10/2023 urina lysis , refle x cultu re glucose negati ve negati ve Not Available Not Available 07/28/2024 23:54:09 12/10/19 24 12/10/2023 urina lysis , refle x cultu re protein negati ve negati ve Not Available Not Available 07/28/2024 23:54:09 12/10/19 24 12/10/2023 urina lysis , refle x cultu re nitrite negati ve negati ve Not Available Not Available 07/28/2024 23:54:09 12/10/19 24 12/10/2023 urina lysis , refle x cultu re leukocytes negati ve negati ve Not Available Not Available 07/28/2024 23:54:09 12/10/19 24 12/10/2023 urina lysis , refle x cultu re review comment * micro scopi c resul ts revie wed by techn ologi st. ----- Not Available Not Available 07/28/2024 23:54:09 12/10/19 24 12/10/2023 urina lysis , refle x cultu re red blood cell 0-2 0-2/hp f Not Available Not Available 07/28/2024 23:54:09 12/10/19 24 12/10/2023 urina lysis , refle x cultu re white blood cell 0-5 0-5/hp f Not Available Not Available 07/28/2024 23:54:09 12/10/19 24 12/10/2023 urina lysis , refle x cultu re squamous epithelial 0-2 0-10/h pf Not Available Not Available 07/28/2024 23:54:09 12/10/19 24 12/10/2023 urina lysis , refle x cultu re bacteria none seen none Not Available Not Available 23:54:09 12/10/19 24 12/10/2023 urina lysis , refle x cultu re hyaline cast 0-2 0-2/lp f Not Available Not Available 07/28/2024 23:54:09 12/10/19 24 12/10/2023 urina lysis , refle x cultu re calcium oxalaste crystal presen t absent abnormal Not Available Not Available 23:54:09 02/02/20 24 12/02/2023 US, scrot um No observ ation record ed. [email or web address] Not Available 02/01 09:38:03 Result Notes None recorded. Problems Name Problem SNOMED Code Status Onset Date Resolution Date Notes Provider Name and Address Organization Details Recorded Time Lesion of prostate 819688808 Active [address] [facility] 4 16:20:57 Prostate specific antigen above reference range 568836842 Active [address] [facility] 4 16:25:21 Spermatocele 57716106 Active 2023 Stacy Estevan null, [facility] 4 16:52:49 Problem Notes None recorded. Procedures Surgical History Date Name Laterality Status Provider Name and Address Organization Details Recorded Time Colonoscopy with biopsy completed Not Available Health Note 12/03/2023 18:44:44 Imaging Results Imaging Date Name Status LastModified by Organiz ation Details LastModified Time 12/02/2023 US, scrotum completed [email or web address] Information n ot available 02/02/2024 09:38:03 Procedure Notes None recorded. Medical Equipment None Reported. Medications Name Sig Start Date Stop Date Status Note LastModified by Organization Details LastModified Time tetracycline 500 mg capsule TAKE 1 CAPSULE BY MOUTH EVERY 12 HOURS active Not Available Not Available No t Available meloxicam 15 mg tablet Take 1 tablet every day by oral route for 15 days. active Not Available Not Available No t Available propranolol ER 60 mg capsule,24 hr,extended release TAKE 1 CAPSULE BY MOUTH ONCE DAILY active Not Available Not Available No t Available carbamazepine 200 mg tablet TAKE 1 TABLET BY MOUTH EVERY 12 HOURS active Not Available Not Available No t Available alprazolam 0.25 mg tablet TAKE 1 TABLET BY MOUTH THREE TIMES DAILY NEEDED FOR ANXIETY active Not Available Not Available No t Available mirtazapine 15 mg tablet TAKE 1 TABLET BY MOUTH ONCE DAILY BEFORE BEDTIME active Not Available Not Available No t Available albuterol sulfate HFA 90 mcg/actuation aerosol inhaler INHALE 2 PUFFS BY MOUTH EVERY 6 HOURS NEEDED active Not Available Not Available No t Available propranolol 20 mg tablet TAKE 1 TABLET BY MOUTH THREE TIMES DAILY active Not Available Not Available No t Available Vraylar 1.5 mg capsule TAKE 1 CAPSULE BY MOUTH ONCE DAILY active Not Available Not Available No t Available Vitals Date Recorded Body height Body mass index (BMI) Body weight Body temperature Heart rate Oxygen saturation Oxygen saturation in Arterial blood by Pulse oximetry Systolic blood pressure Diastolic blood pressure Provider Name and Address Organization Details Last Updated DateTime 4 173.99 cm 23.9 kg/m2 32481.0 6 g 98.3 [degF] 60 /min 99 % 99 % 145 mm[Hg] 51 mm[Hg] Lalita haynes [facility] 4 16:19:30 Social History Question Answer Notes LastModified by Organizat ion Details LastModified Time Do You Have An Advance Directive? No [email or web address] Information not available 12/03/2023 What Is Your Level Of Alcohol Consumption? None [email or web address] Information not available 12/03/2023 What Is Your Level Of Caffeine Consumption? Heavy [email or web address] Information not available 12/03/2023 Are You Currently Employed? Yes [email or web address] Information not available 12/03/2023 Which Illicit Or Recreational Drugs Have You Used? 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 3-4 Times Per Week [email or web address] Information not available 12/03/2023 How Many Packs Per Day (PPD)? 1/2 Pack Per Day [email or web address] Information not available 12/03/2023 How Long Have You Smoked? 40 Years [email or web address] Information not available 12/03/2023 Do You Have A Medical Power Of Nursing Teacher? No [email or web address] Information not available 12/03/2023 What Was The Date Of Your Most Recent Tobacco Screening? 12/10/2023 [email or web address] Information not available 12/03/2023 What Is Your Relationship Status? Domestic Partner [email or web address] Information not available 12/03/2023 Do You Use Any Illicit Or Recreational Drugs? Yes [email or web address] Information not available 12/03/2023 Sex: Unknown Functional Status Question Answer Note LastModified by Organization D etails LastModified Time What is your exercise level? Moderate [email or web address] Information not available 12/03/2023 Mental Status None recorded. Family History Relationship Description Onset Age of this Age Resolved Age Notes LastModified by Organization Details LastModified Time Brother Attention deficit hyperactivit y disorder [email or web address] Not available 12/02 18:44:43 Mother Diabetes mellitus [email or web address] Not available 2023 18:44:43 Mother Hypertensive disorder [email or web address] Not available 2023 18:44:43 Mother Hypercholest erolemia [email or web address] Not available 2023 18:44:43 Maternal Grandmother Hypertensive disorder [email or web address] Not available 2023 18:44:43 Maternal Grandmother Hypercholest erolemia [email or web address] Not available 2023 18:44:43 Medical History Condition Response Diabetes N Anxiety Disorder N Bleeding Disorder N Attention-deficit Hyperactivity Disorder N High Blood Pressure N Arthritis N Hyperlipidemia N Cancer N Stroke N Thyroid Problems N COPD N Depression N Asthma N Seizures N Anemia N Heart Disease N Fibromyalgia N Osteoporosis N Kidney Disease N Past Encounters Encounter ID Performer Location Encounter Start Date Encounter Closed Date Diagnosis/Indication Diagnosis SNOMED-CT Code Diagnosis ICD10 Code Diagnosis Note [id number] Beverly Payne , SHEAR OPERATOR, CAN CRIMPER 800 [facility] ([place]) [address] [place] [address] 12/10/2023 15:54:21 12/10/2023 16:52:52 Prostate specific antigen above reference range 001713633 R97.20 Spermatocele 50722699 N4 3.41 Health Concerns Section Related Observation LastModified by Organization Detai ls LastModified Time None Recorded Concern Status LastModified by Organization Details LastModified Time None Recorded Advance Directives Directive N: Payers Encounter Date Sequence Insurance Name Policy Number Policy Justice Covered Member ID Justice Member ID Guarantor Name 12/10/2023 1 [facility] PRIOR TO 01/31/2021 (MEDICAID REPLACEMENT - HMO) Brandon Chucky [id number] Brandon Locke 12/10/2023 1 [facility] ON OR AFTER 01/31/21 (MEDICAID REPLACEMENT - HMO) Brandon Locke [id number] Brandon Locke Notes Date Note Type Note Provider Name and Address Organization Details Recorded Time 4 text/html Assessment & Plan:Left spermatocele-ultrasound was faxed over from [facility]. I explained to the patient that there is no concern for carcinoma. This is a epididymal head cyst/spermatocele. We gave him some meloxicam 15 mg daily x 10 days to see if we can get him uninflamed and out of discomfort. Patient was in agreement with this plan.History of present illness: This is a 48-year-old gentleman that presents today as a new patient in regards to scrotal ultrasound findings from [facility]. Patient reports that he has been having left testicular discomfort and was evaluated in the emergency department. Patient reports that after the scrotal ultrasound, he was informed that he has a left testicular mass that needs a biopsy. I requested imaging be faxed over to us which I reviewed. It appears patient has a spermatocele on the left testicle. I explained to the patient this can cause discomfort because it can get inflamed however is not concerning for a carcinoma and does not need biopsied. I recommended we try some meloxicam 15 mg daily x 10 days to see if we can get that inflammation down and get him comfortable. Patient voiced understanding and is in agreement with the planMedical History:Surgical History:Social History:The new patient form is signed and placed on the 12/10/2023 medical record.Review of systems:The patient denies fever, chills, nausea, vomiting, chest pain, shortness of breathVitals, medical problems, medications, social histories and allergies are noted below.Physical exam:The patient is alert and oriented. In no acute distress. Skin warm and dry.Extraocular movements are intact.Head normocephalicNormal hearingNo speech defectsRespirations are deep and regular.Abdomen is soft. There is no suprapubic or flank tenderness.There is no peripheral edema.Gait is normal and without defect.Genitalia: Normal appearing male genitalia. There are no penile lesions or drainage. Testicles are descended bilaterally. No inguinal hernias appreciated.Large epididymal head cyst noted upon palpation tender to the touch left Beverly Payne, ANALI, CAN CRIMPER [address] [place] [address], [id number], [place] [facility] 12/21/2023 09:39:13
--- OUTSIDE RECORDS SUMMARY | 2024-09-15 07:46 | XMS_ITS | Encounter Summary ---
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
--- OUTSIDE RECORDS SUMMARY | 2024-09-15 07:46 | XMS_ITS | Encounter Summary ---
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
== END 2024-09-15 07:41 | disposition home or self-care (01) ==
LOC: CHSIMG 07:43
PROVIDERS: PCP Family Medicine; Visit Provider Family Medicine
DX: M79.671 Pain in right foot (principal); S92.354D Nondisplaced fracture of fifth metatarsal bone, right foot, subsequent encounter for fracture with routine healing; M25.571 Pain in right ankle and joints of right foot
CPT/HCPCS: 73718; 73721

== ENCOUNTER 2024-09-30 08:09 | Outpatient (RCR) | payer OTHER, SELFPAY ==
--- NOTE | 2024-09-30 07:42 | PTOPDC ---
Assessment and note entered by Viky Betts, PT Evaluation Information Assessment Status Discharge Diagnosis R heel pain ICD-10 Condition Codes (PT) Pain in right ankle and joints of right foot M25. 571 Onset 09/08/24 Subjective Information Mr. Locke reports onset of R heel pain beginning 3 weeks ago at work when he jumped off a flat bed truck and felt like his foot was stinging. States he wears steel toed and steel soled boots at work and that the impact on them might have caused the stinging pain. The next day he woke up and wasn't able to walk due to pain, went to the hospital and was told his metatarsal was fractured, however he later got an x-ray that confirmed no fracture was present. He was referred to physical therapy but states he had to wait for authorization to be seen, and in the meantime he' s been doing exercises at home and no longer has pain. He is planning to return back to work on Thursday. Reported Pain Level Pain Score 0: Self Report Assessment PT Clinical Summary Mr. Locke presents to physical therapy following complaints of R heel and foot pain after jumping off a truck bed at work 3 weeks ago, however since the incident occurred he has been performing exercises on his own at home and no longer has pain. He demonstrates excellent lower extremity strength and ROM and has no significant gait deficits, therefore skilled PT intervention is not appropriate at this time. Educated Mr. Locke on additional home exercises to maintain lower extremity strength and ankle ROM and to return to his doctor and/or physical therapy should his pain recur. Plan of Care PT Services Indicated No
== END 2024-09-30 20:00 | disposition home or self-care (01) ==
LOC: CHSPT 08:09
PROVIDERS: PCP Family Medicine; Visit Provider Family Medicine
DX: M79.671 Pain in right foot (principal)
CPT/HCPCS: 97110; 97161

== ENCOUNTER 2024-12-07 17:44 | Emergency (ER) | payer SELFPAY ==
--- NOTE | ~2024-12-07 | CT_ITS ---
History: Dizzy and blurry vision with headache PROCEDURE: CT head without contrast. COMPARISON: None. Reference is made to an MRI examination of the brain dated 05/07/2024 TECHNIQUE: Axial imaging of the head performed from the skull base to the vertex without IV contrast. Sagittal a nd coronal reformations obtained. DLP: 605 mGy-cm FINDINGS: The ventricles are normal in size, shape and position. There is no mass, mass effect or midline shift. There is no abnormal extra-axial fluid collection or intracranial hemorrhage. Visualized paranasal sinuses are clear. The mastoid air cells are well aerated. No acute displaced fractures within the overlying cranium. Impression: No acute intracranial hemorrhage or suspicious mass effect. Reviewed, dictated and finalized at location A. Impression: No acute intracranial hemorrhage or suspicious mass effect.
[2024-12-07 17:44] VITALS: BP 150/90; PULSE 68; RESP 20; TEMP 36.6; O2SAT 99
--- OUTSIDE RECORDS SUMMARY | 2024-12-07 17:49 | XMS_ITS | Encounter Summary ---
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
--- OUTSIDE RECORDS SUMMARY | 2024-12-07 17:49 | XMS_ITS | Clinical Summary ---
Author Organization [facility] Address [address] [place] [address] Care Team Providers Care Campus Monitor Name Role Phone Ford Leos MD Primary Care Provider [phone] Allergies No known active allergies Medications diclofenac-miSOP ROStol EC (ARTHROTEC 50) 50-0.2 MG tablet Take 1 tablet by mouth 2 (two) times daily. 60 tablet 09/08/2024 Active Social History Tobacco Use Types Packs/Day Years [...] Sex Assigned at Male 09/08/2024 11:05 AM MECHANICAL LABORATORY TECHNICIAN Legal Sex Male 9:25 PM MECHANICAL LABORATORY TECHNICIAN Gender Identity Not on file Sexual Orientation Not on file Last Filed Vital Signs Vital Sign Reading Time Taken Comments Blood Pressure 109/86 09/08/2024 1:30 PM MECHANICAL LABORATORY TECHNICIAN Pulse 55 09/08/2024 1:30 PM MECHANICAL LABORATORY TECHNICIAN Temperature 36.7 C (98 F) 09/08/2024 10:45 AM MECHANICAL LABORATORY TECHNICIAN Respiratory Rate 10 09/08/2024 1:30 PM MECHANICAL LABORATORY TECHNICIAN Oxygen Saturation 99% 09/08/2024 1:30 PM MECHANICAL LABORATORY TECHNICIAN Inhaled Oxygen Concentration - - Weight 76.2 kg (168 lb) 09/08/2024 10:45 AM MECHANICAL LABORATORY TECHNICIAN Height 175.3 cm (5' 9 ) 09/08/2024 10:45 AM MECHANICAL LABORATORY TECHNICIAN Body Mass Index 24.81 09/08/2024 10:45 AM MECHANICAL LABORATORY TECHNICIAN Plan of Treatment Health Maintenance Due Date Last Done Comments Colorectal Cancer Screening Colonoscopy (10 Years) 1973 Annual Physical 1976 Hepatitis C 1991 DTaP, Tdap and Td Vaccines ( 1 - Tdap) 1992 Hepatitis B Vaccines (1 of 3 - 19+ 3-dose series) 1992 Pneumococcal Vaccine: 50+ Ye ars (1 of 2 - PCV) 1992 Zoster Vaccines (1 of 2) 2023 COVID-19 Vaccine (1 - 2023-2 5 season) 2024 Meningococcal B Vaccine Aged Out No l onger eligible based on patient's age to complete this topic Meningococcal Vaccine Aged Out No julita juliocesar eligible based on patient's age to complete this topic RSV Immunizations Under 20 Months Aged Out No longer eligible based on patient's age to complete this topic Insurance Care Teams Campus Monitor Relationship Specialty Start Date End Date Ford Leos MD PCP - General FAMILY PRACTICE 05/02/19
--- OUTSIDE RECORDS SUMMARY | 2024-12-07 17:49 | XMS_ITS | Data Portability ---
Author Organization [facility], [address] ([place]) Address [address] [place] [address] [address] [place] [address] Assessment No assessment recorded. Plan of Treatment Reminders Order Date Submit Date Provider Last Modified By Organization Details Last Modified Time Details Appointments None recorded. Lab urinalysi s complete, reflex culture 2023 [facility], [address] [place] [address], [id number], 4 14:12:46 Referral None recorded. Procedures None recorded. Surgeries None recorded. Imaging None recorded. Medication Orders meloxicam 15 mg tablet 2023 [facility], [address] [place], [address], 4 14:12:46 Patient TargetsNo targets recorded. Patient [...] CLINI TATA SIGNI FICAN T. Not Available [facility] [address] [place] [address], [id number], 12/11/2023 11:15:24 12/10/19 24 12/11/2023 urina lysis compl ete, refle x cultu re color DARK YELLOW Dipst ick may be inacc urate due to the color of the urine Not Available [facility] [address] [place] [address], [id number], 12/11/2023 11:15:24 12/10/19 24 12/11/2023 urina lysis compl ete, refle x cultu re clarity CLEAR Not Available [facility] [address] [place] [address], [id number], 12/11/2023 11:15:24 12/10/19 24 12/11/2023 urina lysis compl ete, refle x cultu re pH 5.5 5.0-7. 5 Not Available [facility] [address] [place] [address], [id number], 12/11/2023 11:15:24 12/10/19 24 12/11/2023 urina lysis compl ete, refle x cultu re specific gravity 1.032 1.000- 1.030 high Not Available [facility] [address] [place] [address], [id number], 12/11/2023 11:15:24 12/10/19 24 12/11/2023 urina lysis compl ete, refle x cultu re blood NEGATI VE negati ve Not Available [facility] [address] [place] [address], [id number], 12/11/2023 11:15:24 12/10/19 24 12/11/2023 urina lysis compl ete, refle x cultu re bilirubin NEGATI VE negati ve Not Available [facility] [address] [place] [address], [id number], 12/11/2023 11:15:24 12/10/19 24 12/11/2023 urina lysis compl ete, refle x cultu re urobilinogen 0.2 0.2-1. 0 Not Available [facility] [address] [place] [address], [id number], 12/11/2023 11:15:24 12/10/19 24 12/11/2023 urina lysis compl ete, refle x cultu re ketone NEGATI VE negati ve Not Available [facility] [address] [place] [address], [id number], 12/11/2023 11:15:24 12/10/19 24 12/11/2023 urina lysis compl ete, refle x cultu re glucose NEGATI VE negati ve Not Available [facility] [address] [place] [address], [id number], 12/11/2023 11:15:24 12/10/19 24 12/11/2023 urina lysis compl ete, refle x cultu re protein NEGATI VE negati ve Not Available [facility] [address] [place] [address], [id number], 12/11/2023 11:15:24 12/10/19 24 12/11/2023 urina lysis compl ete, refle x cultu re nitrite NEGATI VE negati ve Not Available [facility] [address] [place] [address], [id number], 12/11/2023 11:15:24 12/10/19 24 12/11/2023 urina lysis compl ete, refle x cultu re leukocytes NEGATI VE negati ve Not Available [facility] [address] [place] [address], [id number], 12/11/2023 11:15:24 12/10/19 24 12/11/2023 urina lysis compl ete, refle x cultu re review * Micro scopi c resul ts revie wed by Techn [facility]. Not Available [facility] [address] [place] [address], [id number], 12/11/2023 11:15:24 12/10/19 24 12/11/2023 urina lysis compl ete, refle x cultu re RBC 0-2 0-2/hp f Not Available [facility] [address] [place] [address], [id number], 12/11/2023 11:15:24 12/10/19 24 12/11/2023 urina lysis compl ete, refle x cultu re WBC 0-5 0-5/hp f Not Available [facility] [address] [place] [address], [id number], 12/11/2023 11:15:24 12/10/19 24 12/11/2023 urina lysis compl ete, refle x cultu re squamous epithelial 0-2 0-10/h pf Not Available [facility] [address] [place] [address], [id number], 12/11/2023 11:15:24 12/10/19 24 12/11/2023 urina lysis compl ete, refle x cultu re bacteria NONE SEEN none Not Available Ok Only - [facility] [address] [place] [address], [id number], 12/11/2023 11:15:24 12/10/19 24 12/11/2023 urina lysis compl ete, refle x cultu re hyaline cast 0-2 0-2/lp f Not Available [facility] [address] [place] [address], [id number], 12/11/2023 11:15:24 12/10/19 24 12/11/2023 urina lysis compl ete, refle x cultu re calcium oxalate crystal PRESEN T absent abnormal Not Available [facility] [address] [place] [address], [id number], 12/11/2023 11:15:24 12/10/19 24 12/10/2023 urina lysis [...] scrot um No observ ation record ed. [email or web address] Not Available 02/01 09:38:03 Result Notes None recorded. Problems Name Problem SNOMED Code Status Onset Date Resolution Date Notes Provider Name and Address Organization Details Recorded Time Lesion of prostate 159582983 Active 2023 Lalita haynes [facility] 4 16:20:57 Prostate specific antigen above reference range 570909645 Active 2023 Lalita haynes [facility] 4 16:25:21 Spermatocele 51668737 Active 2023 Stacy Estevan null, [facility] 4 16:52:49 Problem Notes None recorded. Procedures Surgical History Date Name Laterality Status Provider Name and Address Organization Details Recorded Time Colonoscopy with biopsy completed Not Available Health Note 12/03/2023 18:44:44 Imaging Results Imaging Date Name Status LastModified by Organiz ation Details LastModified Time 12/02/2023 US, scrotum completed [email or web address] Information n ot available 02/02/2024 09:38:03 Procedure [...] Updated DateTime 4 173.99 cm 23.9 kg/m2 21839.0 6 g 98.3 [degF] 60 /min 99 % 99 % 145 mm[Hg] 51 mm[Hg] Lalita haynes [facility] 4 16:19:30 Social History Question Answer Notes [...] Do You Have A Medical Power Of Instrument Mechanics Supervisor? No [email or web address] Information not available 12/03/2023 What [...] Cancer N Stroke N Thyroid Problems N Asthma N Depression N COPD N Anemia N Seizures N Heart Disease N Fibromyalgia N Osteoporosis N Kidney Disease N Past Encounters Encounter ID Performer Location Encounter Start Date Encounter Closed Date Diagnosis/Indication Diagnosis SNOMED-CT Code Diagnosis ICD10 Code Diagnosis Note [id number] Beverly Payne , INSTRUCTOR [employer], SALES AND SERVICE CONSULTANT [address] ([place]) [address] [place] [address] 12/10/2023 15:54:21 12/10/2023 16:52:52 Prostate specific antigen above reference range 878824941 R97.20 Spermatocele 15377584 N4 3.41 Health Concerns Section Related Observation LastModified by Organization Detai ls LastModified Time None Recorded Concern Status LastModified by Organization Details LastModified Time None Recorded Advance Directives Directive N: Payers Insurance Date Sequence Insurance Name Policy Number Policy Justice Covered Member ID Justice Member ID Guarantor Name 01/11/2024 1 [facility] PRIOR TO 01/31/2021 (MEDICAID REPLACEMENT - HMO) Brandon Chucky [id number] Brandon Locke 01/11/2024 1 [facility] ON OR AFTER 01/31/21 (MEDICAID REPLACEMENT - HMO) Brandon Locke [id number] Brandon Locke Notes Date Note Type Note Provider Name and Address Organization Details Recorded Time 4 text/html Assessment & Plan:Left spermatocele-ultrasound was faxed over from [facility]. I explained to the patient [...] to scrotal ultrasound findings from [facility]. Patient reports that he has [...] tender to the touch left Beverly Payne, INSTRUCTOR [employer], SALES AND SERVICE CONSULTANT [address] [place] [address], [phone], [place] [facility] 12/21/2023 09:39:13
--- OUTSIDE RECORDS SUMMARY | 2024-12-07 17:49 | XMS_ITS | Encounter Summary ---
Author Organization [facility] Address [address] [place] [address] Care Team Providers Care Production Administrative Assistant Name Role Phone Ford Leos MD Primary Care Provider [phone] Encounter Details Date Type Department Care Team (Late st Contact Info) Description 01/08/2019 Abstract [facility] CONVERSION [address] [place] [address] , Generic Conversion, Social History Tobacco Use Types Packs/Day Years Used Date Smoking Tobacco: Never Assessed Sex and Gender Information Value Date Recorded Sex Assigned at Male 09/08/2024 11:05 AM QUALITY ENGINEERING MANAGER Legal Sex Male 9:25 PM QUALITY ENGINEERING MANAGER Gender Identity Not on file Sexual Orientation Not on file documented as of this encounter Plan of Treatment Not on file documented as of this encounter Visit Diagnoses Not on filedocumented in this encounter Care Teams Production Administrative Assistant Relationship Specialty Start Date End Date Ford Leos MD PCP - General FAMILY PRACTICE 05/02/19 documented as of this encounter
--- NOTE | 2024-12-07 17:51 | ED_ITS ---
HPI - Dizziness General Chief Complaint: Dizziness Stated Complaint: dizzy, blurry vision Time Seen by Provider: 12/07/24 17:51 Source: patient Mode of arrival: ambulatory Limitations: no limitations History of Present Illness HPI Narrative: 49-year-old male a history hypertension, GERD disorder presents to the ED with a 2 day history of -- headache. this is generalized. This starts in the morning and worse as the day goes -- dizziness. The patient describes this as vertigo. He has had a history of vertigo. Has gait unsteadiness. No history of falls -- difficulty with vision. The patient is unable to focus. No visual loss. No double vision. Patient is extremely anxious. He wonders if he has the stroke or brain tumor. MD elicited complaint: dizziness, difficulty walking, vertigo and disequilibrium Pertinent past history: BPPV Onset (ago): day(s) ( Two days) Timing: gradual onset Severity: moderate Description: room spinning History of similar symptoms: Yes Exacerbating factors: movement/ambulation Relieving factors: nothing Associated neuro symptoms: vision changes Related Data Allergies Allergy/AdvReac Type Severity Reaction Status Date / Time No Known Allergies Allergy Verified 12/07/24 17:51 Review of Systems 2 Review of Systems: All systems reviewed & are unremarkable except as noted in HPI and below Constitutional: Constitutional: Reports as per HPI, Reports no additional constitutional complaints and Reports weakness Eyes: Eyes: Reports as per HPI and Reports no additional eye complaints C omments: is unable to describe his eye symptoms. Denies problems with visual acuity. He denies diplopia. He feels his eyes are loosely moving all over the place. ENT: Reports system reviewed and no additional complaints, except as documented and Reports as per HPI Cardiovascular: Cardiovascular: Reports as per HPI and Reports no additional cardiovascular complaints Respiratory: Respiratory: Reports as per HPI and Reports no additional respiratory complaints Gastrointestinal: Gastrointestinal: Reports as per HPI and Reports no additional gastrointestinal complaints Genitourinary: Genitourinary: Reports no additional male genitourinary complaints Musculoskeletal: Musculoskeletal: Reports no additional musculoskeletal complaints and Reports as per HPI Integumentary/Breasts: Skin/Breast: Reports system reviewed and no additional complaints, except as docu and Reports as per HPI Neurologic: Reports system reviewed and no additional complaints, except as documented and Reports as per HPI Psychiatric: Psychiatric: Reports no additional psychiatric complaints, Reports as per HPI and Reports anxiety Endocrine: Endocrine: Reports no additional endocrine complaints and Reports as per HPI Hematologic/Lymphatic: Hematologic/Lymphatic: Reports no additional hematologic/lymphatic complaints and Reports as per HPI Allergic/Immunologic: Allergic/Immunologic: Reports no additional allergic/immunologic complaints and Reports as per HPI PMFSH Past Medical History Medical History GERD (gastroesophageal reflux disease) Infection due to severe acute respiratory syndrome coronavirus 2 (SARS-CoV-2) Hypertension Bipolar 1 disorder Surgical History Surgical History No pertinent past surgical history Family History Family History Mother Degenerative arthritis Social History Social History Smoking packs per day: 0.5 Smoking cigarettes per day: 10.0 Years smoked: 30 Smoking pack-years: 15.00 Smoking status: Current every day smoker Tobacco type: cigarettes Alcohol intake: current Alcohol use details: occasional use - couple of drinks per month Substance use: current Substance use type: marijuana Living arrangements: with friend(s) Additional living arrangements comments: fiance Gender identity (if verbalized by the patient): Male Spiritual care concerns: No Exam 2 Narrative: Patient is not orthostatic Const: General: healthy appearing and no acute distress Nutritional Appearance: well nourished Orientation/consciousness: patient oriented x3 Limitations: no limitations HENMT: Head: normal to inspection Ears: TM's normal bilaterally F gerard/Nose/Sinus: Normal external nose present Face and sinus: normal facial exam Mouth: Yes Normal oral and palatal mucosa present Throat: posterior oropharynx normal Eyes: Conjunctivae: conjunctivae normal Pupils: Equal, round and reactive pupils present EOM: EOMs intact bilaterally Direct Ophthalmoscopy: no photophobia Neck: Neck: normal visual inspection, no lymphadenopathy and no meningeal signs Chest: Chest palpation & inspection: normal inspection of the chest Resp: Effort & Inspection: normal respiratory effort Auscultation: clear to auscultation bilaterally Cardio: Rate: regular rate Rhythm: regular rhythm GI: Other: no tenderness/ rigidity /rebound : General: Yes no CVA tenderness Back/Spine/Pelvis: Back: no CVA tenderness Cervical Spine: collar present Skin: General skin exam: normal color Rashes: no rashes Wounds: no wounds Neuro: General: patient oriented x3, moves all extremities, no meningeal signs, no focal motor deficits and CN's II-XI intact bilaterally Cranial nerves: Yes Nystagmus not present Speech: normal speech Gait exam (Neuro): Normal gait present Extrem: General: normal to inspection and no clubbing, cyanosis or edema Psych: Mental Status: mental status grossly normal Affect: Anxious affect present Attitude: cooperative Course Course Emergency Course: headache- not orthostatic dizziness/ vertigo vision disturbance blood work is unremarkable including troponin. EKG does not show any acute findings. CT of the not show any acute findings Vital Signs Vital signs: Vital Signs Temperature 36.6 C 12/07/24 17:44 Pulse Rate 68 12/07/24 17:44 Respiratory Rate 20 12/07/24 17:44 Blood Pressure 150/90 H 12/07/24 17:44 Pulse Oximetry 99 12/07/24 17:44 Oxygen Delivery Room Air 12/07/24 17:44 Temperature 36.6 C 12/07/24 17:44 Pulse Rate 68 12/07/24 17:44 Respiratory Rate 20 12/07/24 17:44 Blood Pressure 150/90 H 12/07/24 17:44 Pulse Oximetry 99 12/07/24 17:44 Oxygen Delivery Room Air 12/07/24 17:44 MDM - Dizziness MDM Narrative Medical decision making narrative: dizziness/ vertigo anxiety Differential Diagnosis Differential diagnosis: Likely benign paroxysmal positional vertigo and orthostatic hypotension Medical Records Attestation: I reviewed the patient's medical records. Lab Data Attestation: I reviewed the patient's lab results. 12/07/24 18:18 12/07/24 18:18 Labs: Lab Results 12/07/24 Range/Units 18:18 WBC 7.0 (4.8-10.8) K/mm3 RBC 4.95 (4.70-6.10) M/mm3 Hgb 14.7 (14.0-18.0) g/dL Hct 43.9 (40.0-54.0) % MCV 88.7 (78.0-102.0) fL MCH 29.7 (27.0-31.0) pg MCHC 33.5 (32-36) g/dL RDW 12.7 (11.6-14.4) % Plt Count 282 (150-420) K/mm3 MPV 9.9 (8.7-11.0) fl Immature Gran % (Auto) 0.3 H (0.0-0.0) % Neut % (Auto) 51.6 (50.0-70.0) % Lymph % (Auto) 37.0 (18.0-42.0) % Jefferson % (Auto) 8.4 (2.0-11.0) % Eos % (Auto) 2.0 (1.0-6.0) % Baso % (Auto) 0.7 (0.0-1.0) % Lymph # (Auto) 2.60 (1.10-4.50) K/mm3 Jefferson # (Auto) 0.59 (0.10-0.90) K/mm3 Eos # (Auto) 0.14 (0.02-0.50) K/mm3 Baso # (Auto) 0.05 (0.00-0.10) K/mm3 Abs Immat Gran (auto) 0.02 H (0.00-0.00) K/mm3 Absolute Neuts (auto) 3.63 (1.70-7.20) K/mm3 Absolute Nucleated RBC 0.00 (0.00-0.00) K/mm3 Nucleated RBC % 0.0 (0-0.0) % Sodium 138 (137-145) mmol/L Potassium 3.9 (3.4-5.0) mmol/L Chloride 107 (98-107) mmol/L Carbon Dioxide 25 (22-30) mmol/L Anion Gap 6 (4-12) mmol/L BUN 15 (9-20) mg/dL Creatinine 1.01 (0.7-1.3) mg/dL Estim Creat Clear Calc 74 ml/min Estimated GFR > 60 (59 - ) Glucose 82 (65-110) mg/dL Calculated Osmolality 285 (285-295) mOsm/kg Calcium 9.3 (8.4-10.2) mg/dL Total Bilirubin 0.5 (0.2-1.3) mg/dL AST 39 (17-59) U/L ALT 37 (6-50) U/L Alkaline Phosphatase 105 (38-126) U/L Troponin I 0.018 (0.000-0.034) ng/mL NT-Pro-B Natriuret Pep 23 (19.9-100) pg/mL Total Protein 7.6 (6.3-8.2) g/dL Albumin 4.6 (3.5-5.1) g/dL TSH 2.64 (0.36-3.74) uIU/mL ECG Data EKG #1: ECG completion date: 12/07/24 ECG completion time: 18:31 Interpretation: normal sinus normal axis. No ST- Discharge Plan Discharge Clinical Impression: Vertigo, Anxiety Patient Disposition: Home Condition: Stable Instructions: Antibiotic Form, Benign Paroxysmal Positional Vertigo (ED), Anxiety (ED) Patient Language: Tajik Prescriptions: No Action ibuprofen 800 mg tablet 800 mg PO TID PRN (Reason: pain) Qty: 30 0RF cyclobenzaprine 10 mg tablet 10 mg PO TID PRN (Reason: muscle spasm) Qty: 30 0RF Follow-up/Referrals: Hugo Weir MD [Primary Care Provider] - Time of Disposition: 19:11
--- NOTE | 2024-12-07 18:04 | ECG_ITS ---
Test Date: 2024-12-07 18:31:52 Measurements Intervals [place] Rate: 62 P: 57 [place]: 181 QRS: 19 QRSD: 100 T: 40 QT: 407 QTc: 415 Interpretive Statements SINUS RHYTHM WITH OCCASIONAL VENTRICULAR PREMATURE COMPLEXES INCOMPLETE RIGHT BUNDLE BRANCH BLOCK No previous ECG available for comparison Electronically Signed On 12-08-2024 09:59:42 CDT by Marko Yeboah M.D.
--- OUTSIDE RECORDS SUMMARY | 2024-12-07 18:20 | XMS_ITS | Clinical Summary ---
Author Organization [facility] Address [address] [place] [address] Care Team Providers Care Solar Electric Installer Name Role Phone Ford Leos MD Primary Care Provider [phone] Allergies No known active allergies Medications diclofenac-miSOP [...] Sex Assigned at Male 09/08/2024 11:05 AM SCHOOL LABORATORY TECHNICIAN Legal Sex Male 9:25 PM SCHOOL LABORATORY TECHNICIAN Gender Identity Not on file Sexual Orientation Not on file Last Filed Vital Signs Vital Sign Reading Time Taken Comments Blood Pressure 109/86 09/08/2024 1:30 PM SCHOOL LABORATORY TECHNICIAN Pulse 55 09/08/2024 1:30 PM SCHOOL LABORATORY TECHNICIAN Temperature 36.7 C (98 F) 09/08/2024 10:45 AM SCHOOL LABORATORY TECHNICIAN Respiratory Rate 10 09/08/2024 1:30 PM SCHOOL LABORATORY TECHNICIAN Oxygen Saturation 99% 09/08/2024 1:30 PM SCHOOL LABORATORY TECHNICIAN Inhaled Oxygen Concentration - - Weight 76.2 kg (168 lb) 09/08/2024 10:45 AM SCHOOL LABORATORY TECHNICIAN Height 175.3 cm (5' 9 ) 09/08/2024 10:45 AM SCHOOL LABORATORY TECHNICIAN Body Mass Index 24.81 09/08/2024 10:45 AM SCHOOL LABORATORY TECHNICIAN Plan of Treatment Health Maintenance [...] to complete this topic Insurance Care Teams Solar Electric Installer Relationship Specialty Start Date End Date Ford Leos MD PCP - General FAMILY PRACTICE 05/02/19
--- OUTSIDE RECORDS SUMMARY | 2024-12-07 18:20 | XMS_ITS | Encounter Summary ---
Author Organization [facility] Address [address] [place] [address] Care Team Providers Care Juvenile Corrections Officer Name Role Phone Ford Leos MD Primary Care Provider [phone] Encounter Details Date Type Department Care Team (Late st Contact Info) Description 10/17/2017 Abstract [facility] CONVERSION [address] [place] [address] , Generic Conversion, Social History Tobacco Use Types Packs/Day Years Used Date Smoking Tobacco: Never Assessed Sex and Gender Information Value Date Recorded Sex Assigned at Male 09/08/2024 11:05 AM ASSEMBLY LINE LEADER Legal Sex Male 9:25 PM ASSEMBLY LINE LEADER Gender Identity Not on file Sexual Orientation Not on file documented as of this encounter Plan of Treatment Not on file documented as of this encounter Visit Diagnoses Not on filedocumented in this encounter Care Teams Juvenile Corrections Officer Relationship Specialty Start Date End Date Ford Leos MD PCP - General FAMILY PRACTICE 05/02/19 documented as of this encounter
--- OUTSIDE RECORDS SUMMARY | 2024-12-07 18:20 | XMS_ITS | Encounter Summary ---
Author Organization [facility] Address [address] [place] [address] Care Team Providers Care Work Force Advisor Name Role Phone Ford Leos MD Primary Care Provider [phone] Encounter Details Date Type Department Care Team (Late st Contact Info) Description 01/08/2019 Abstract [facility] CONVERSION [address] [place] [address] , Generic Conversion, Social History Tobacco Use Types Packs/Day Years Used Date Smoking Tobacco: Never Assessed Sex and Gender Information Value Date Recorded Sex Assigned at Male 09/08/2024 11:05 AM TIME SIGNAL WIRER Legal Sex Male 9:25 PM TIME SIGNAL WIRER Gender Identity Not on file Sexual Orientation Not on file documented as of this encounter Plan of Treatment Not on file documented as of this encounter Visit Diagnoses Not on filedocumented in this encounter Care Teams Work Force Advisor Relationship Specialty Start Date End Date Ford Leos MD PCP - General FAMILY PRACTICE 05/02/19 documented as of this encounter
[2024-12-07 18:21] LABS: Basophils Absolute Auto 0.05 K/mm3 (0.00-0.10); Basophils Percent Auto 0.7 % (0.0-1.0); Eosinophils Absolute Auto 0.14 K/mm3 (0.02-0.50); Hematocrit 43.9 % (40.0-54.0); Hemoglobin 14.7 g/dL (14.0-18.0); Immature Granulocyte Absolute 0.02 K/mm3 (0.00-0.00); Immature Granulocyte Percent A 0.3 % (0.0-0.0); Mean Corpuscular HGB Conc 33.5 g/dL (32-36); Mean Corpuscular Hemoglobin 29.7 pg (27.0-31.0); Mean Corpuscular Volume 88.7 fL (78.0-102.0); Mean Platelet Volume 9.9 fl (8.7-11.0); Monocytes Absolute Auto 0.59 K/mm3 (0.10-0.90); Monocytes Percent Auto 8.4 % (2.0-11.0); Neutrophils Absolute Auto 3.63 K/mm3 (1.70-7.20); Neutrophils Percent Auto 51.6 % (50.0-70.0); Platelet Count Result 282 K/mm3 (150-420); Red Blood Count 4.95 M/mm3 (4.70-6.10); Red Cell Distribution Width 12.7 % (11.6-14.4)
[2024-12-07 18:33] LABS: Alanine Aminotransferase 37 U/L (6-50); Albumin Level 4.6 g/dL (3.5-5.1); Alkaline Phosphatase 105 U/L (38-126); Anion Gap 6 mmol/L (4-12); Aspartate Amino Transferase 39 U/L (17-59); Bilirubin,Total 0.5 mg/dL (0.2-1.3); Blood Urea Nitrogen 15 mg/dL (9-20); Calcium 9.3 mg/dL (8.4-10.2); Carbon Dioxide 25 mmol/L (22-30); Chloride 107 mmol/L (98-107); Estimated CRCL calculation 74 ml/min; Estimated Glomerular Filt Rate > 60; Glucose 82 mg/dL (65-110); Osmolality Calculated 285 mOsm/kg (285-295); Potassium 3.9 mmol/L (3.4-5.0); Sodium 138 mmol/L (137-145); Total Protein 7.6 g/dL (6.3-8.2)
[2024-12-07 18:45] LABS: NT Pro B Type Natriuretic Pept 23 pg/mL (19.9-100); Troponin I 0.018 ng/mL (0.000-0.034)
[2024-12-07 18:55] LABS: Thyroid Stimulating Hormone 2.64 uIU/mL (0.36-3.74)
--- NOTE | 2024-12-07 19:05 | PC.NURSE ---
patient report received from BRENT Valle. Patient resting on stretcher, awaiting results and plan.
--- NOTE | 2024-12-07 19:13 | PC.NURSE ---
Dr Bahena at bedside providing update ans plan of care
[2024-12-07 19:16] VITALS: BP 130/96; PULSE 68; RESP 18; TEMP 36.7; O2SAT 99
== END 2024-12-07 19:26 | disposition home or self-care (01) ==
PROVIDERS: Emergency Provider Internal Medicine Critical Care Medicine; PCP Family Medicine
DX: F41.9 Anxiety disorder, unspecified (principal); R42 Dizziness and giddiness; I10 Essential (primary) hypertension; F17.210 Nicotine dependence, cigarettes, uncomplicated
CPT/HCPCS: 36415; 70450; 80053; 83880; 84443; 84484; 85025; 93005; 99284